=== PATIENT | male | born 1960 | race Caucasian/White ===

== ENCOUNTER 2022-07-09 09:34 | Outpatient (CLI) | payer BC, SELFPAY ==
--- NOTE | ~2022-07-09 | US_ITS ---
US renal BI 07/09/2022 10:10 Procedure: Realtime transabdominal ultrasound of the kidneys and bladder. Indication: Benign prostatic hypertrophy Comparison: No prior studies for comparison. Findings: Renal echotexture is normal bilaterally without hydronephrosis, contour deforming mass or r enal calculus. The right kidney measures 10.7 cm and left kidney measures 9.8 cm. Bladder within nor mal limits. Prostate gland is enlarged. Impression: 1: Unremarkable renal ultrasound. No stones, masses or hydronephrosis. Reviewed, dictated and finalized at location B. SCOPE TECHNICIAN Impression: 1: Unremarkable renal ultrasound. No stones, masses or hydronephrosis.
== END 2022-07-09 09:35 | disposition home or self-care (01) ==
PROVIDERS: PCP Internal Medicine; Visit Provider Nurse Practitioner
DX: N40.1 Benign prostatic hyperplasia with lower urinary tract symptoms (principal)
CPT/HCPCS: 76775

== ENCOUNTER 2024-12-20 13:09 | Emergency (ER) | payer MEDICARE, SELFPAY ==
[2024-12-20] VITALS (27 sets, daily range): BP systolic 98–139; BP diastolic 62–109; PULSE 60–90; RESP 13–28; TEMP 36.7; O2SAT 93–98
--- NOTE | ~2024-12-20 | XR_ITS ---
EXAMINATION: XR chest 2V Exam Date/Time: 12/20/2024 14:00 CDT HISTORY: weakness Comparison: None. RESULT: Lines, tubes, and devices: None. Lungs and pleura: Curvilinear left upper lobe opacification, corresponding to ovoid opacity in the l ateral view. Graded left lung opacity, increasing inferiorly. Moderate left costophrenic angle blunti ng. Cardiomediastinal silhouette: Partially obscured laterally, otherwise unremarkable. Other: No acute osseous or upper abdominal finding. IMPRESSION: Moderate, possibly loculated left pleural effusion with adjacent atelectasis. Infection not excluded Reviewed, dictated and finalized at location K. IMPRESSION: Moderate, possibly loculated left pleural effusion with adjacent atelectasis. I nfection not excluded
--- NOTE | ~2024-12-20 | CT_ITS ---
EXAMINATION: CT brain wo con DATE: 12/20/2024 15:58 INDICATION: hx alcoholism, recent falls . TECHNIQUE: Computed tomography (CT) of the head was performed without intravenous contrast. The mA wa s adjusted according to patient size. Iterative reconstruction technique was employed. The dose-lengt h product was 756.67 mGy-cm. COMPARISON: None. FINDINGS: No acute intracranial hemorrhage or extra-axial fluid collection. No hydrocephalus, mass, or herniation. No acute ischemic infarct. Unremarkable dural venous sinus attenuation. No acute osseous abnormality. Mucosal thickening and dependent secretions in the right sphenoid sinus, the remaining aerated spaces are clear. Mild atrophy and chronic white matter change. Atherosclerotic intracranial calcification. IMPRESSION: No acute intracranial process. Reviewed, dictated and finalized at location K.
--- NOTE | ~2024-12-20 | CT_ITS ---
EXAMINATION: CT cervical spine wo con DATE: 12/20/2024 15:59 INDICATION: hx alcoholism, recent falls, neck pain TECHNIQUE: Computed tomography (CT) of the cervical spine was performed without intravenous contrast. Automated exposure control and iterative reconstruction technique were employed. The dose-length pro duct was 277.78 mGy-cm. COMPARISON: None. FINDINGS: Vertebral Body Alignment: Intact. Craniocervical and atlantoaxial alignment: Moderate degenerative change. Alignment intact. Osseous structures/fracture: No evidence of a lytic or blastic process in the visualized spine. No e vidence of acute fracture. Cervical soft tissues: The paraspinal soft tissues planes are maintained. Biapical pleural scarring. Large loculated left pleural fluid collection. Groundglass opacities in the left lung. Periodontal di sease. Degenerative changes: Multilevel degenerative disc disease and facet arthropathy. Severe left neural foraminal narrowing at C4-5 secondary to degenerative changes. No severe central canal narrowing. IMPRESSION: No acute fracture or traumatic malalignment in the cervical spine. Large loculated appearing left pleural fluid collection with adjacent atelectasis. Please refer to th e report on the concurrent CTPA chest abdomen and pelvis for further details. Reviewed, dictated and finalized at location K. IMPRESSION: No acute fracture or traumatic malalignment in the cervical spine. Large loculated appearing left pleural fluid collection with adjacent atelectas is. Please refer to the report on the concurrent CTPA chest abdomen and pelvis for further details.
--- NOTE | ~2024-12-20 | CT_ITS ---
EXAMINATION: CTA chest PE abdomen pel, CT thoracic lumbar wo con DATE: 12/20/2024 16:12 INDICATION: hx alcoholism, recent falls, shortness of breath TECHNIQUE: CT of the thoracic and lumbar spine was performed without contrast. Computed tomography an giography (CTA) of the chest was performed with 100 mL Omnipaque-350 intravenous contrast timed to ev aluate the pulmonary arteries, followed by portal venous phase imaging of the abdomen and pelvis. Cor onal maximum intensity projection 3D-reconstructions were created by the technologist. The dose-lengt h product (DLP) was 580.46 (accession [id number]), 692.80 (accession [id number]) mGy-cm. Auto mated exposure control and iterative reconstruction technique were employed. COMPARISON: None. FINDINGS: CHEST: Lung parenchyma and airways: Significant volume loss in the left lung, with groundglass opacity in th e upper lung. Nearly complete atelectasis of the left lower lobe. Airway debris in left lower lobe br onchi. Mild atelectasis in the dependent right lung base. Mild emphysematous change. Mild biapical pl eural thickening. Pleura: Large probably loculated left pleural effusion. Gas bubbles in the dependent and medial aspec t of the pleural fluid. Small right pleural effusion. Thoracic inlet, axillae and chest wall: No thyroid or soft tissue mass. Diffuse body wall edema. Thoracic aorta: No significant dilation. No dissection. Mild atherosclerotic calcification. Mediastinum: No mass or lymphadenopathy. Heart and pericardium: Cardiomegaly. Small volume pericardial effusion. Coronary artery calcifications: Mild. Extraspinal thoracic bones: No acute osseous finding. Pulmonary arteries: Study quality: Adequate. No pulmonary emboli detected. ABDOMEN/PELVIS: Liver: Normal. Biliary/Gallbladder: Gallbladder is normal. No bile duct dilation. Pancreas: No mass or duct dilation. Spleen: Normal. Adrenals:No mass. Kidneys: No suspicious mass, obstructing stone, or hydronephrosis. GI tract: Mild distal esophageal and gastric wall edema. Mild ascending colonic wall edema. No small or large bowel dilation. Appendix not confidently visualized. Mesentery/Peritoneum: No ascites, mass, or free air. Moderate diffuse mesenteric edema. Retroperitoneum: No mass. Atherosclerotic calcifications of intra-abdominal arterial vessels. Pelvis: Grijalva catheter and gas in the urinary bladder. Moderate bladder distention. Moderate bladder wall thickening. Large left-sided diverticulum. Enlarged prostate. Presacral edema. Soft Tissues: Moderate diffuse body wall edema. Extraspinal abdominopelvic bones: Asymmetric bilateral sacral fusion. No acute osseous finding. THORACIC SPINE: 12 rib-bearing thoracic vertebral bodies Vertebral body alignment intact. Moderate height loss at T12 . Multilevel mild degenerative disc disease. Acute/subacute appearing mild burst fracture at T12 with 3 mm retropulsion. No other fracture or traumatic malalignment detected. No severe central canal or neural foraminal narrowing. LUMBAR SPINE: 5 nonrib-bearing lumbar-type vertebral bodies. Pedicles intact. Normal vertebral body alignment. Mild wedge compression fracture at L4 involving the superior endplate into cortex. No definite posterior cortical involvement. No other fracture or traumatic malalignment detected in the lumbar spine. Multi level degenerative disc disease and facet arthropathy. No severe central canal or neural foraminal na rrowing. IMPRESSION: No CT evidence of acute pulmonary embolus. Large, possibly loculated left pleural effusion with intrapleural gas suggesting empyema. No pneumoth orax. Left upper lung groundglass opacities, likely representing atelectasis, infection not excluded. Near complete atelectasis of the left lower lobe. Left lower lobe airway debris suggesting a compone nt of aspiration. Small right pleural effusion. Cardiomegaly with small pericardial effusion. Mild esophagitis/gastritis. Moderate cystitis. Distended urinary bladder despite the presence of a Grijalva catheter, correlate with tube function. Moderate diffuse mesenteric edema. Body wall edema. Acute/subacute appearing moderate burst fracture at T12, with 3 mm retropulsion. Acute/subacute appearing mild anterior wedge compression fracture at L4. Reviewed, dictated and finalized at location K. IMPRESSION: No CT evidence of acute pulmonary embolus. Large, possibly loculated left pleural effusion with intrapleural gas suggestin g empyema. No pneumothorax. Left upper lung groundglass opacities, likely repre senting atelectasis, infection not excluded. Near complete atelectasis of the l eft lower lobe. Left lower lobe airway debris suggesting a component of aspirat ion. Small right pleural effusion. Cardiomegaly with small pericardial effusion. Mild esophagitis/gastritis. Moderate cystitis. Distended urinary bladder despite the presence of a Grijalva ca theter, correlate with tube function. Moderate diffuse mesenteric edema. Body wall edema. Acute/subacute appearing moderate burst fracture at T12, with 3 mm retropulsion . Acute/subacute appearing mild anterior wedge compression fracture at L4.
--- OUTSIDE RECORDS SUMMARY | 2024-12-20 13:11 | XMS_ITS | Continuity of Care Document ---
Author Organization [facility] Address [id number] [place] [address] [place] [address] Phone Care Team Providers Care Dairy Manager Name Role Phone Merritt Varma DO Unavailable Unavailable Advance Directives Directive Yes / No Effective Date File Name No Information Encounters Encounter Description Practice Location Reason(s) For Visit Diagnoses Date Provider Providers Copied on Encounter [facility], [address], [place], [place], [id number], [place] tel:[phone] [facility] No Information Kojo Lomeli. [address] [facility], [place], [address], [place]. tel:[phone] Family History Family Member Type Diagnosis Age At Onset No Information Payers Payer name Insurance type Covered green party ID Authoriza tion(s) No Information Social History Type Description Quantity Date Captured Comments Sex Male Smoking Status No Information Chief Complaint And Reason For Visit No Information Reason For Referral Reason For Referral No Information History Of Present Illness Encounter Date Complaint History Of Prese nt Illness No Information Functional Status Date Functional Assessmen t No Information Instructions Date Instruction Additional Infor mation No Information Assessments Type Assessment Date No Information Patient Care Teams Name Effective Dates (start - stop) Status Members No Information
--- OUTSIDE RECORDS SUMMARY | 2024-12-20 13:11 | XMS_ITS | Continuity of Care Document ---
Author Organization [facility] Address [address] [place] [address] Phone Care Team Providers Care Singing Waiter Or Waitress Name Role Phone No Information Unavailable Unavailable Advance Directives Directive Yes / No Effective Date File Name No Information Encounters Encounter Description Practice Location Reason(s) For Visit Diagnoses Date Provider Providers Copied on Encounter Medical [facility], [address], [place], [place], [id number], [place] tel:[phone] No Information No Information Family History Family Member Type Diagnosis Age At Onset No Information Payers Payer name Insurance type Covered alliance party ID Authoriza tion(s) No Information Social [...]
--- OUTSIDE RECORDS SUMMARY | 2024-12-20 13:12 | XMS_ITS | Clinical Summary ---
Author Organization [facility] Address [address] [place] [address] Care Team Providers Care Long Haul Truck Driver Name Role Phone Higinio Leary MD Primary Care Provider [phone] Allergies Active Allergy Reactions Criticality Noted Date Comments Steroids Anxiety Low 06/22/2022 Medications finasteride (PROSCAR) 5 MG tablet Take 5 mg by mouth daily. 06/01/2022 Active tamsulosin (FLOMAX) 0.4 MG Cap Take 0.4 mg by mouth 2 (two) times daily. 06/07/2022 Active multi vitamin/minerals (THERA-M ENHANCED) tablet Take 1 tablet by mouth daily. Active Active Problems Problem Noted Date Diagnosed Date Body mass index (BMI) 20.0-20.9, adult Alcohol dependence with unsp ecified alcohol-induced disorder ([facility]) 06/22/2022 Nicotine dependence, cigarettes, uncomplicated 0 06/22/2022 Genital herpes simplex, unspecified site 023 Hx of colonic polyps 06/22/2022 Cellulitis of both ear canals 06/22/2022 Dermatitis of ear canal, bilateral 06/22/2022 Ear drainage, bilateral 06/22/2022 Tinnitus of both ears 06/22/2022 Benign prostatic hyperplasia with nocturia 06/22 Symptoms involving urinary system 11/02/2021 Seborrheic dermatitis of scalp 04/09/2019 Hyperlipidemia 03/27/2019 Paronychia of toe of right foot 11/26/2018 Immunizations Immunization Administration Dates Next Due Fluzone 6 Months+ Quad (0.5 mL Prefilled Syringe ) 06/22/2022 Family History Medical History Relation Comments None Daughter pbh Father Atrial fibrillation Mother Relation Status Comments Daughter Father Mother Social History Tobacco Use Types Packs/Day Years Used Date Smoking Tobacco: Every Day Cigarettes 2 50 Smokeless Tobacco: Never Tobacco Cessation:Ready to Q uit: No; Counseling Given: Yes Comments:The provider can provide you with more information about quitting Alcohol Use Standard Drinks/Week Comments Yes 20 (1 standard drink = 0.6 oz pu re alcohol) daily PHQ-2 Answer Date Recorded Patient Health Questionnaire-2 Score 0 06/22/2022 Sex and Gender Information Value Date Recorded Sex Assigned at Not on file Legal Sex Male 10:03 AM HONING MACHINE OPERATOR Gender Identity Not on file Sexual Orientation Not on file Last Filed Vital Signs Vital Sign Reading Time Taken Comments Blood Pressure 138/88 06/22/2022 12:23 PM HONING MACHINE OPERATOR Pulse 64 06/22/2022 11:20 AM HONING MACHINE OPERATOR Temperature 36.4 C (97.6 F) 06/22/2022 11:20 AM HONING MACHINE OPERATOR Respiratory Rate 16 06/22/2022 11:20 AM HONING MACHINE OPERATOR Oxygen Saturation 98% 06/22/2022 11:20 AM HONING MACHINE OPERATOR Inhaled Oxygen Concentration - - Weight 68.5 kg (151 lb) 06/22/2022 11:20 AM HONING MACHINE OPERATOR Height 182.9 cm (6') 06/22/2022 11:20 AM HONING MACHINE OPERATOR Body Mass Index 20.48 06/22/2022 11:20 AM HONING MACHINE OPERATOR Plan of Treatment Health Maintenance Due Date Last Done Comments Colorectal Cancer Screening Colonoscopy (10 Years) 1958 Hepatitis C 1976 Pneumococcal Vaccine: 50+ Ye ars (1 of 2 - PCV) 1977 Zoster Vaccines (1 of 2) 2008 COVID-19 Vaccine (2 - 2023-2 5 season) 2024 08/27/2020 DTaP, Tdap and Td Vaccines ( 2 - Td or Tdap) 06/20/2031 06/20/2021 RSV Immunization or 60+ Years (1 - 1-dose 75+ series) 2033 Meningococcal B Vaccine Aged Out No l onger eligible based on patient's age to complete this topic Meningococcal Vaccine Aged Out No paulina shad eligible based on patient's age to complete this topic RSV Immunizations Under 20 Months Aged Out No longer eligible based on patient's age to complete this topic Insurance Care Teams Long Haul Truck Driver Relationship Specialty Start Date End Date Higinio Leary MD PCP - General INTERNAL MEDICINE 07/10/22
--- NOTE | 2024-12-20 13:24 | ECG_ITS ---
Test Date: 2024-12-20 13:30:53 Measurements Intervals [place] Rate: 86 P: 70 AR: 160 QRS: 3 QRSD: 116 T: 43 QT: 356 QTc: 427 Interpretive Statements SINUS RHYTHM WITH FREQUENT VENTRICULAR PREMATURE COMPLEXES WITH OCCASIONAL SUPRAVENTRICULAR PREMATURE COMPLEXES POSSIBLE LEFT ATRIAL ENLARGEMENT INCOMPLETE RIGHT BUNDLE BRANCH BLOCK NONSPECIFIC ST & T-WAVE ABNORMALITY- DIFFUSE LEADS BASELINE ARTIFACT- I, II, AVR, AVL, AVF, V1-V3 ABNORMAL ECG No previous ECG available for comparison Electronically Signed On 12-20-2024 16:22:31 CDT by Dio Pinzon D.O.
--- NOTE | 2024-12-20 13:54 | PC.NURSE ---
Pt catheter changed
[2024-12-20 14:08] LABS: Hematocrit 35.6 % (42.0-52.0); Hemoglobin 12.1 g/dL (14.0-18.0); Immature Granulocyte Percent A 0.6 % (0-0.5); Lymphocytes Absolute Auto 2.09 K/mm3 (0.9-3.2); Mean Corpuscular HGB Conc 34.0 g/dl (32-36); Mean Corpuscular Hemoglobin 32.2 pg (26-34); Mean Corpuscular Volume 94.7 fl (80-100); Nucleated Red Blood Cells Absolute Auto 0.000 K/mm3 (0.0-0.012); Nucleated Red Blood Cells Perc 0.0 % (0.0-0.2); Platelet Count Result 413 k/mm3 (150-375); Red Blood Count 3.76 M/mm3 (4.6-6.20); White Blood Count 10.8 K/mm3 (4.5-10.0)
[2024-12-20 14:19] LABS: Alanine Aminotransferase 13 U/L (6-50); Albumin Level 2.5 g/dL (3.5-5.1); Alkaline Phosphatase 111 U/L (38-126); Aspartate Amino Transferase 40 U/L (17-59); Bilirubin,Total 0.4 mg/dL (0.2-1.3); Blood Urea Nitrogen 8 mg/dL (9-20); Calcium 7.4 mg/dL (8.4-10.2); Carbon Dioxide > 40 mmol/L (22-30); Chloride 79 mmol/L (98-107); Estimated CRCL calculation 105 ml/min; Estimated Glomerular Filt Rate > 60; Glucose 123 mg/dL (65-110); Potassium < 2.0 mmol/L (3.4-5.0); Sodium 132 mmol/L (137-145); Total Protein 6.3 g/dL (6.3-8.2)
--- OUTSIDE RECORDS SUMMARY | 2024-12-20 14:20 | XMS_ITS | Clinical Summary ---
Author Organization [facility] Address [address] [place] [address] Care Team Providers Care Print Shop Assistant Name Role Phone Higinio Leary MD Primary Care Provider [phone] Allergies Active Allergy Reactions Criticality Noted Date [...] Alcohol dependence with unsp ecified alcohol-induced disorder ([facility]) 06/22/2022 Nicotine dependence, cigarettes, uncomplicated 0 06/22/2022 [...] on file Legal Sex Male 10:03 AM ODD PIECE CHECKER Gender Identity Not on file Sexual Orientation Not on file Last Filed Vital Signs Vital Sign Reading Time Taken Comments Blood Pressure 138/88 06/22/2022 12:23 PM ODD PIECE CHECKER Pulse 64 06/22/2022 11:20 AM ODD PIECE CHECKER Temperature 36.4 C (97.6 F) 06/22/2022 11:20 AM ODD PIECE CHECKER Respiratory Rate 16 06/22/2022 11:20 AM ODD PIECE CHECKER Oxygen Saturation 98% 06/22/2022 11:20 AM ODD PIECE CHECKER Inhaled Oxygen Concentration - - Weight 68.5 kg (151 lb) 06/22/2022 11:20 AM ODD PIECE CHECKER Height 182.9 cm (6') 06/22/2022 11:20 AM ODD PIECE CHECKER Body Mass Index 20.48 06/22/2022 11:20 AM ODD PIECE CHECKER Plan of Treatment Health Maintenance Due Date [...] to complete this topic Insurance Care Teams Print Shop Assistant Relationship Specialty Start Date End Date Higinio Leary MD PCP - General INTERNAL MEDICINE 07/10/22
--- OUTSIDE RECORDS SUMMARY | 2024-12-20 14:20 | XMS_ITS | Continuity of Care Document ---
Author Organization [facility] Address [address] [place] [address] Phone Care Team Providers Care Skin Carver Name Role Phone No Information Unavailable Unavailable Advance Directives Directive Yes / No Effective Date File Name No Information Encounters Encounter Description Practice Location Reason(s) For Visit Diagnoses Date Provider Providers Copied on Encounter Medical [facility], [address], [place], [place], [id number], [place] tel:[phone] No Information No Information Family History Family [...]
--- OUTSIDE RECORDS SUMMARY | 2024-12-20 14:20 | XMS_ITS | Continuity of Care Document ---
Author Organization [facility] Address [address] [place] [address] [place] [address] Phone Care Team Providers Care [place] Utility Worker Name Role Phone Merritt Varma DO Unavailable Unavailable Advance Directives Directive Yes / No Effective Date File Name No Information Encounters Encounter Description Practice Location Reason(s) For Visit Diagnoses Date Provider Providers Copied on Encounter [facility], [address], [place], [place], [id number], [place] tel:[phone] [facility] No Information Kojo Lomeli. [address] [facility], [place], [address], [place]. tel:[phone] Family History Family Member Type Diagnosis Age [...]
--- NOTE | 2024-12-20 14:44 | ED_ITS ---
HPI - Weakness General Chief complaint: Weakness <Dimple Weaver APRN - Last Filed: 12/21/24 01:23> Stated complaint: FTT <Dimple Weaver APRN - Last Filed: 12/21/24 01:23> Time Seen by Provider: 12/20/24 13:52 <Dimple Weaver APRN - Last Filed: 12/21/24 01:23> History of Present Illness HPI Narrative: Patient is a 64-year-old male who presents to the ER with multiple medical complaints. He reports he retired from [employer] in August and has lost a significant amount of weight since then. Patient reports he fell 2 times on November 13, 2024 because he was drunk. He reports he went to [place] 3 times was discharged home. Patient endorses significant back pain since that time. He also endorses intermittent chest pain, shortness of breath, and tingling all over his head and back. Patient denies any medical history besides alcoholism and urinary retention. He reports 1 of the times he went to [place] [facility] they placed a urinary catheter due to urinary retention and he was supposed to follow-up with a urologist. Patient denies any recent fevers, one- sided weakness/numbness/tingling, or lower extremity edema. <Dimple Weaver APRN - Last Filed: 12/21/24 01:23> Related Data Allergies/Adverse reactions: Allergies Allergy/AdvReac Type Severity Reaction Status Date / Time No Known Allergies Allergy Verified 12/20/24 13:55 <Dimple Weaver APRN - Last Filed: 12/21/24 01:23> Review of Systems 2 Review of Systems: All systems reviewed & are unremarkable except as noted in HPI and below <Dimple Weaver APRN - Last Filed: 12/21/24 01:23> Exam 2 Narrative: GENERAL: Ill appearing, cachexia, non-toxic, in no acute distress. HEAD: Normocephalic, atraumatic. NECK: Supple. No adenopathy, no masses. RESPIRATORY: Airway patent, respirations nonlabored. Clear to auscultation bilaterally, no rales, rhonchi, wheezing. CARDIOVASCULAR: Regular rate and rhythm without murmurs, rubs, or gallops. Peripheral pulses 2+ and equal bilaterally. ABDOMINAL: Soft, nontender, nondistended, no hepatosplenomegaly. Normoactive BS. MUSCULOSKELETAL: Moves all extremities. Strength/ROM intact without gross deformities. + pain with palpation to thoracic spine, - pain with palpation to cervical spine SKIN: Warm, dry, pallor. No rashes. NEURO: A&O X3. Speech clear. Cranial nerves II-XII intact. No ataxic movements. PSYCHIATRIC: Appropriate mood and affect. Normal interaction. <Dimple Weaver APRN - Last Filed: 12/21/24 01:23> Course HR DIRECTOR/PA Physician Supervision For this patient encounter, I reviewed the HR DIRECTOR or PA documentation, treatment plan, and medical decision making; and I had [id number] time with this patient. <Brijesh Haider MD - Last Filed: 12/25/24 13:59> Vital Signs Vital signs: Vital Signs Temperature 98.1 F 12/20/24 13:26 Pulse Rate 88 12/20/24 13:26 Respiratory Rate 20 12/20/24 13:26 Blood Pressure 104/64 12/20/24 13:26 Pulse Oximetry 96 12/20/24 13:26 Oxygen Delivery Room Air 12/20/24 13:26 Temperature 98.1 F 12/20/24 13:26 Pulse Rate 66 12/20/24 21:31 Respiratory Rate 18 12/20/24 21:31 Blood Pressure 130/78 12/20/24 21:31 Pulse Oximetry 98 12/20/24 21:31 Oxygen Delivery Room Air 12/20/24 13:26 <Dimple Weaver APRN - Last Filed: 12/21/24 01:23> Vital Signs Temperature 98.1 F 12/20/24 13:26 Pulse Rate 88 12/20/24 13:26 Respiratory Rate 20 12/20/24 13:26 Blood Pressure 104/64 12/20/24 13:26 Pulse Oximetry 96 12/20/24 13:26 Oxygen Delivery Room Air 12/20/24 13:26 Temperature 98.1 F 12/20/24 13:26 Pulse Rate 66 12/20/24 21:31 Respiratory Rate 18 12/20/24 21:31 Blood Pressure 130/78 12/20/24 21:31 Pulse Oximetry 98 12/20/24 21:31 Oxygen Delivery Room Air 12/20/24 13:26 <Brijesh Haider MD - Last Filed: 12/25/24 13:59> MDM - Weakness MDM Narrative Medical decision making narrative: Patient is a 64-year-old male who presents to the ER with multiple medical complaints. He reports he retired from [employer] in August and has lost a significant amount of weight since then. Patient reports he fell 2 times on November 13, 2024 because he was drunk. He reports he went to [place] [facility] 3 times was discharged home. Patient endorses significant back pain since that time. He also endorses intermittent chest pain, shortness of breath, and tingling all over his head and back. Patient denies any medical history besides alcoholism and urinary retention. He reports 1 of the times he went to [place] [facility] they placed a urinary catheter due to urinary retention and he was supposed to follow-up with a urologist. Patient denies any recent fevers, one- sided weakness/numbness/tingling, or lower extremity edema. NIH Stroke Scale/Score (NIHSS) from [email or web address] on 12/20/2024 All calculations should be rechecked by clinician prior to use RESULT SUMMARY: 0 points NIH Stroke Scale INPUTS: 1A: Level of consciousness ?> 0 = Alert; keenly responsive 1B: Ask month and age ?> 0 = Both questions right 1C: 'Blink eyes' & 'squeeze hands' ?> 0 = Performs both tasks 2: Horizontal extraocular movements ?> 0 = Normal 3: Visual aparicio ?> 0 = No visual loss 4: Facial palsy ?> 0 = Normal symmetry 5A: Left arm motor drift ?> 0 = No drift for 10 seconds 5B: Right arm motor drift ?> 0 = No drift for 10 seconds 6A: Left leg motor drift ?> 0 = No drift for 5 seconds 6B: Right leg motor drift ?> 0 = No drift for 5 seconds 7: Limb Ataxia ?> 0 = No ataxia 8: Sensation ?> 0 = Normal; no sensory loss 9: Language/aphasia ?> 0 = Normal; no aphasia 10: Dysarthria ?> 0 = Normal 11: Extinction/inattention ?> 0 = No abnormality Labs Ordered: CBC, CMP, PTT, INR, d.dimer, CRP, UDS, UA, CK, blood cultures, ethanol level, TSH Imaging Ordered: CT head, CT cervical spine, CT thoracic lumbar spine, CT chest abdomen pelvis Medications Ordered: 2 L normal saline IV bolus, azithromycin IV, ceftriaxone IV, thiamine, folic acid, calcium gluconate, potassium chloride p.o., potassium chloride IV Results: Patient's CBC indicates white blood cell count of 10.8, RBC of 3.76, hemoglobin of 12.1, hematocrit of 35.6%, platelets of 413. Patient's coags indicated a PT of 15.9, INR 1.3, APTT of 32.7 seconds. His D-dimer was 2.81. Patient's chemistry indicates a sodium of 133, potassium of 1.5, chloride of 79, carbon dioxide of greater than 40, BUN of 8, creatinine of 0.52, and calcium of 7.4. His alk-phos was 132. Patient's initial troponin was elevated to 0.035 but his next troponin was within normal limits at 0.026. His C-reactive protein was 16.4. Patient's albumin was 2.6. His TSH was within normal limits, vitamin B12 was 786, and folate was 15. Patient's urinalysis indicates urinary tract infection. His UDS was negative for any illicit drugs. Patient's ethyl alcohol level was below 10. Patient's CT scans indicate No CT evidence of acute pulmonary embolus. Large, possibly loculated left pleural effusion with intrapleural gas suggesting empyema. No pneumothorax. Left upper lung groundglass opacities, likely representing atelectasis, infection not excluded. Near complete atelectasis of the left lower lobe. Left lower lobe airway debris suggesting a component of aspiration. Small right pleural effusion. Cardiomegaly with small pericardial effusion. Mild esophagitis/gastritis. Moderate cystitis. Distended urinary bladder despite the presence of a Grijalva catheter, correlate with tube function. Moderate diffuse mesenteric edema. Body wall edema. Acute/subacute appearing moderate burst fracture at T12, with 3 mm retropulsion. Acute/subacute appearing mild anterior wedge compression fracture at L4. Diagnosis: Loculated pleural effusion, T12 burst fracture, hypokalemia, urinary tract infection, hypocalcemia Consults: 1800- Spoke with neurosurgery, Dr. Garcia, who advised pt have a Vitamin B12 level drawn d/t his intermittent numbness/tingling in his arms and legs. She also reports pt will need a back brace and she will coordinate that after she consults on pt tomorrow morning. 1830- Spoke with hospitalist, Teri Sepulveda NP, who reports pt will need to go to an outside hospital d/t his loculated pleural effusion. 2100-spoke with oil sales and service rep, Dr. Marcial, at [facility] on [address], who was in agreement with plan for admission. He reports pt should receive Flagyl IV to treat his empyema. Dr. Marcial also requests pt continue to have his potassium replaced prior to and during his transport to their facility. CRITICAL CARE ADDENDUM: Indication: Hypokalemia, hypocalcemia, fluid replacement Time type: intermittent I provided a total of 55 minutes of critical care excluding separately billable procedures. This includes time w/ EMS, initial bedside evaluation, reviewing old records, review of testing done while under my care, discussion w/ the family, nurses, consultant in ergonomics and safety and guiding the patient?s care while in the emergency department. Approximate time distribution: 15 minutes ? Initial evaluation, d/w involved parties, attempting to gather old records. 10 minutes ? Documenting medical record 10 minutes ? Review of results (EKGs, labs, imaging) 10 minutes ? Serial repeat bedside evaluation 10 minutes ? Discussing case with multiple providers Excludes separately billable procedures. 2430- Pt transferred out of the ER on his stretcher. Vital signs remain stable. Pt was receiving potassium IV as he left the ER. He continues to be A & O x 4. <Dimple Weaver, WELLNESS COORDINATOR - Last Filed: 12/21/24 01:23> Differential Diagnosis Differential diagnosis: Likely hypoglycemia, hypothyroidism, rhabdomyolysis, sepsis and dehydration <Dimple Weaver APRN - Last Filed: 12/21/24 01:23> Lab Data Attestation: I reviewed the patient's lab results. <Dimple Weaver APRN - Last Filed: 12/21/24 01:23> Result diagrams: 12/20/24 13:53 12/20/24 19:52 <Dimple Weaver WELLNESS COORDINATOR - Last Filed: 12/21/24 01:23> Labs: Lab Results 12/20/24 12/20/24 12/20/24 Range/Units 13:53 14:52 14:52 WBC 10.8 H (4.5-10.0) K/mm3 RBC 3.76 L (4.6-6.20) M/mm3 Hgb 12.1 L (14.0-18.0) g/dL Hct 35.6 L (42.0-52.0) % MCV 94.7 (80-100) fl MCH 32.2 (26-34) pg MCHC 34.0 (32-36) g/dl RDW 13.7 (11.5-14.5) % Plt Count 413 H (150-375) k/mm3 MPV 11.5 H (7.4-10.4) fl Immature Gran % (Auto) 0.6 H (0-0.5) % Neut % (Auto) 73.4 H (45.5-73.1) % Lymph % (Auto) 19.4 (18.3-44.2) % Mayes % (Auto) 6.1 (2.6-8.5) % Eos % (Auto) 0.2 (0-4.4) % Baso % (Auto) 0.3 (0.2-1.2) % Lymph # (Auto) 2.09 (0.9-3.2) K/mm3 Mayes # (Auto) 0.7 H (0.1-0.6) K/mm3 Eos # (Auto) 0.0 (0-0.3) K/mm3 Baso # (Auto) 0.0 (0.0-0.1) K/mm3 Abs Immat Gran (auto) 0.07 H (0.00-0.031) K/mm3 Absolute Neuts (auto) 7.9 H (1.3-6.7) K/mm3 Absolute Nucleated RBC 0.000 (0.0-0.012) K/mm3 Nucleated RBC % 0.0 (0.0-0.2) % PT 15.9 H (11.1-14.7) Seconds INR 1.3 APTT 32.7 (22.3-36.8) Seconds D-Dimer 2.81 H Cancelled (<0.48) ug/mL Sodium 132 L 133 L (137-145) mmol/L Potassium < 2.0 L* < 2.0 L* (3.4-5.0) mmol/L Chloride 79 L 79 L (98-107) mmol/L Carbon Dioxide > 40 H > 40 H (22-30) mmol/L Anion Gap (4-12) mmol/L BUN 8 L 8 L (9-20) mg/dL Creatinine 0.45 L 0.52 L (0.7-1.3) mg/dL Estim Creat Clear Calc 105 93 ml/min Estimated GFR > 60 > 60 (59 - ) Glucose 123 H 110 (65-110) mg/dL Lactic Acid (0.7-2.0) mmol/L Calcium 7.4 L 7.6 L (8.4-10.2) mg/dL Total Bilirubin 0.4 0.3 (0.2-1.3) mg/dL AST 40 38 (17-59) U/L ALT 13 12 (6-50) U/L Alkaline Phosphatase 111 132 H (38-126) U/L Ammonia (9-30) umol/L Total Creatine Kinase 113 (55-170) U/L Troponin I 0.035 H* (0.000-0.034) ng/mL C-Reactive Protein 16.4 H (<1.0) mg/dL Total Protein 6.3 6.4 (6.3-8.2) g/dL Albumin 2.5 L 2.6 L (3.5-5.1) g/dL Vitamin B12 (239-931) pg/mL Folate (2.76->20) ng/mL TSH (Reflex) (0.465-4.68) uIU/mL Urine Color (Yellow) Urine Appearance (Clear) Urine pH (5.0-9.0) Ur Specific [place] (1.001-1.035) Urine Protein (Negative) mg/dL Urine Glucose (UA) (Negative) mg/dL Urine Ketones (Negative) mg/dL Ur Blood (Man) (Negative) Urine Nitrate (Negative) Urine Bilirubin (Negative) Urine Urobilinogen (<2.0) mg/dL Add Ur Microanalysis Leukocyte Esterase Rfl (Negative) MARY/UL Urine RBC (0-2) /hpf Urine WBC (0-3) /hpf Ur Squamous Epith Cells (Few) /hpf Urine Bacteria /hpf Urine Casts Urine Opiates Screen (Negative) Urine Methadone Screen (Negative) Ur Barbiturates Screen (Negative) Ur Phencyclidine Scrn (Negative) Ur Amphetamine Screen (Negative) U Benzodiazepines Scrn (Negative) Urine Cocaine Screen (Negative) U Cannabinoids Screen (Negative) Ethyl Alcohol (<10) mg/dL 12/20/24 12/20/24 12/20/24 Range/Units 14:53 14:53 15:20 WBC (4.5-10.0) K/mm3 RBC (4.6-6.20) M/mm3 Hgb (14.0-18.0) g/dL Hct (42.0-52.0) % MCV (80-100) fl MCH (26-34) pg MCHC (32-36) g/dl RDW (11.5-14.5) % Plt Count (150-375) k/mm3 MPV (7.4-10.4) fl Immature Gran % (Auto) (0-0.5) % Neut % (Auto) (45.5-73.1) % Lymph % (Auto) (18.3-44.2) % Mayes % (Auto) (2.6-8.5) % Eos % (Auto) (0-4.4) % Baso % (Auto) (0.2-1.2) % Lymph # (Auto) (0.9-3.2) K/mm3 Mayes # (Auto) (0.1-0.6) K/mm3 Eos # (Auto) (0-0.3) K/mm3 Baso # (Auto) (0.0-0.1) K/mm3 Abs Immat Gran (auto) (0.00-0.031) K/mm3 Absolute Neuts (auto) (1.3-6.7) K/mm3 Absolute Nucleated RBC (0.0-0.012) K/mm3 Nucleated RBC % (0.0-0.2) % PT (11.1-14.7) Seconds INR APTT (22.3-36.8) Seconds D-Dimer (<0.48) ug/mL Sodium (137-145) mmol/L Potassium (3.4-5.0) mmol/L Chloride (98-107) mmol/L Carbon Dioxide (22-30) mmol/L Anion Gap (4-12) mmol/L BUN (9-20) mg/dL Creatinine (0.7-1.3) mg/dL Estim Creat Clear Calc ml/min Estimated GFR (59 - ) Glucose (65-110) mg/dL Lactic Acid 1.6 (0.7-2.0) mmol/L Calcium (8.4-10.2) mg/dL Total Bilirubin (0.2-1.3) mg/dL AST (17-59) U/L ALT (6-50) U/L Alkaline Phosphatase (38-126) U/L Ammonia < 9 L (9-30) umol/L Total Creatine Kinase (55-170) U/L Troponin I Cancelled (0.000-0.034) ng/mL C-Reactive Protein Cancelled (<1.0) mg/dL Total Protein (6.3-8.2) g/dL Albumin (3.5-5.1) g/dL Vitamin B12 (239-931) pg/mL Folate (2.76->20) ng/mL TSH (Reflex) 1.830 (0.465-4.68) uIU/mL Urine Color Dark yellow (Yellow) Urine Appearance Turbid H (Clear) Urine pH 7.5 (5.0-9.0) Ur Specific [place] 1.023 (1.001-1.035) Urine Protein 2+ H (Negative) mg/dL Urine Glucose (UA) Negative (Negative) mg/dL Urine Ketones Trace H (Negative) mg/dL Ur Blood (Man) 2+ H (Negative) Urine Nitrate Positive H (Negative) Urine Bilirubin 2+ H (Negative) Urine Urobilinogen 2.0 H (<2.0) mg/dL Add Ur Microanalysis Reviewed Leukocyte Esterase Rfl 3+ H (Negative) MARY/UL Urine RBC 21-50 H (0-2) /hpf Urine WBC >100 H (0-3) /hpf Ur Squamous Epith Cells None seen (Few) /hpf Urine Bacteria 2+ H /hpf Urine Casts 11-20 Urine Opiates Screen Negative (Negative) Urine Methadone Screen Negative (Negative) Ur Barbiturates Screen Negative (Negative) Ur Phencyclidine Scrn Negative (Negative) Ur Amphetamine Screen Negative (Negative) U Benzodiazepines Scrn Negative (Negative) Urine Cocaine Screen Negative (Negative) U Cannabinoids Screen Negative (Negative) Ethyl Alcohol < 10 Cancelled (<10) mg/dL 12/20/24 Range/Units 19:52 WBC (4.5-10.0) K/mm3 RBC (4.6-6.20) M/mm3 Hgb (14.0-18.0) g/dL Hct (42.0-52.0) % MCV (80-100) fl MCH (26-34) pg MCHC (32-36) g/dl RDW (11.5-14.5) % Plt Count (150-375) k/mm3 MPV (7.4-10.4) fl Immature Gran % (Auto) (0-0.5) % Neut % (Auto) (45.5-73.1) % Lymph % (Auto) (18.3-44.2) % Mayes % (Auto) (2.6-8.5) % Eos % (Auto) (0-4.4) % Baso % (Auto) (0.2-1.2) % Lymph # (Auto) (0.9-3.2) K/mm3 Mayes # (Auto) (0.1-0.6) K/mm3 Eos # (Auto) (0-0.3) K/mm3 Baso # (Auto) (0.0-0.1) K/mm3 Abs Immat Gran (auto) (0.00-0.031) K/mm3 Absolute Neuts (auto) (1.3-6.7) K/mm3 Absolute Nucleated RBC (0.0-0.012) K/mm3 Nucleated RBC % (0.0-0.2) % PT (11.1-14.7) Seconds INR APTT (22.3-36.8) Seconds D-Dimer (<0.48) ug/mL Sodium 135 L (137-145) mmol/L Potassium 2.0 L* (3.4-5.0) mmol/L Chloride 88 L (98-107) mmol/L Carbon Dioxide > 40 H (22-30) mmol/L Anion Gap (4-12) mmol/L BUN 7 L (9-20) mg/dL Creatinine 0.47 L (0.7-1.3) mg/dL Estim Creat Clear Calc 101 ml/min Estimated GFR > 60 (59 - ) Glucose 98 (65-110) mg/dL Lactic Acid (0.7-2.0) mmol/L Calcium 7.4 L (8.4-10.2) mg/dL Total Bilirubin (0.2-1.3) mg/dL AST (17-59) U/L ALT (6-50) U/L Alkaline Phosphatase (38-126) U/L Ammonia (9-30) umol/L Total Creatine Kinase (55-170) U/L Troponin I 0.026 D (0.000-0.034) ng/mL C-Reactive Protein (<1.0) mg/dL Total Protein (6.3-8.2) g/dL Albumin (3.5-5.1) g/dL Vitamin B12 786.0 (239-931) pg/mL Folate 15.0 (2.76->20) ng/mL TSH (Reflex) (0.465-4.68) uIU/mL Urine Color (Yellow) Urine Appearance (Clear) Urine pH (5.0-9.0) Ur Specific [place] (1.001-1.035) Urine Protein (Negative) mg/dL Urine Glucose (UA) (Negative) mg/dL Urine Ketones (Negative) mg/dL Ur Blood (Man) (Negative) Urine Nitrate (Negative) Urine Bilirubin (Negative) Urine Urobilinogen (<2.0) mg/dL Add Ur Microanalysis Leukocyte Esterase Rfl (Negative) MARY/UL Urine RBC (0-2) /hpf Urine WBC (0-3) /hpf Ur Squamous Epith Cells (Few) /hpf Urine Bacteria /hpf Urine Casts Urine Opiates Screen (Negative) Urine Methadone Screen (Negative) Ur Barbiturates Screen (Negative) Ur Phencyclidine Scrn (Negative) Ur Amphetamine Screen (Negative) U Benzodiazepines Scrn (Negative) Urine Cocaine Screen (Negative) U Cannabinoids Screen (Negative) Ethyl Alcohol (<10) mg/dL <Dimple Weaver, WELLNESS COORDINATOR - Last Filed: 12/21/24 01:23> Lab Results 12/20/24 12/20/24 12/20/24 Range/Units 13:53 14:52 14:52 WBC 10.8 H (4.5-10.0) K/mm3 RBC 3.76 L (4.6-6.20) M/mm3 Hgb 12.1 L (14.0-18.0) g/dL Hct 35.6 L (42.0-52.0) % MCV 94.7 (80-100) fl MCH 32.2 (26-34) pg MCHC 34.0 (32-36) g/dl RDW 13.7 (11.5-14.5) % Plt Count 413 H (150-375) k/mm3 MPV 11.5 H (7.4-10.4) fl Immature Gran % (Auto) 0.6 H (0-0.5) % Neut % (Auto) 73.4 H (45.5-73.1) % Lymph % (Auto) 19.4 (18.3-44.2) % Mayes % (Auto) 6.1 (2.6-8.5) % Eos % (Auto) 0.2 (0-4.4) % Baso % (Auto) 0.3 (0.2-1.2) % Lymph # (Auto) 2.09 (0.9-3.2) K/mm3 [place]es # (Auto) 0.7 H (0.1-0.6) K/mm3 Eos # (Auto) 0.0 (0-0.3) K/mm3 Baso # (Auto) 0.0 (0.0-0.1) K/mm3 Abs Immat Gran (auto) 0.07 H (0.00-0.031) K/mm3 Absolute Neuts (auto) 7.9 H (1.3-6.7) K/mm3 Absolute Nucleated RBC 0.000 (0.0-0.012) K/mm3 Nucleated RBC % 0.0 (0.0-0.2) % PT 15.9 H (11.1-14.7) Seconds INR 1.3 APTT 32.7 (22.3-36.8) Seconds D-Dimer 2.81 H Cancelled (<0.48) ug/mL Sodium 132 L 133 L (137-145) mmol/L Potassium < 2.0 L* < 2.0 L* (3.4-5.0) mmol/L Chloride 79 L 79 L (98-107) mmol/L Carbon Dioxide > 40 H > 40 H (22-30) mmol/L Anion Gap (4-12) mmol/L BUN 8 L 8 L (9-20) mg/dL Creatinine 0.45 L 0.52 L (0.7-1.3) mg/dL Estim Creat Clear Calc 105 93 ml/min Estimated GFR > 60 > 60 (59 - ) Glucose 123 H 110 (65-110) mg/dL Lactic Acid (0.7-2.0) mmol/L Calcium 7.4 L 7.6 L (8.4-10.2) mg/dL Total Bilirubin 0.4 0.3 (0.2-1.3) mg/dL AST 40 38 (17-59) U/L ALT 13 12 (6-50) U/L Alkaline Phosphatase 111 132 H (38-126) U/L Ammonia (9-30) umol/L Total Creatine Kinase 113 (55-170) U/L Troponin I 0.035 H* (0.000-0.034) ng/mL C-Reactive Protein 16.4 H (<1.0) mg/dL Total Protein 6.3 6.4 (6.3-8.2) g/dL Albumin 2.5 L 2.6 L (3.5-5.1) g/dL Vitamin B12 (239-931) pg/mL Folate (2.76->20) ng/mL TSH (Reflex) (0.465-4.68) uIU/mL Urine Color (Yellow) Urine Appearance (Clear) Urine pH (5.0-9.0) Ur Specific [place] (1.001-1.035) Urine Protein (Negative) mg/dL Urine Glucose (UA) (Negative) mg/dL Urine Ketones (Negative) mg/dL Ur Blood (Man) (Negative) Urine Nitrate (Negative) Urine Bilirubin (Negative) Urine Urobilinogen (<2.0) mg/dL Add Ur Microanalysis Leukocyte Esterase Rfl (Negative) MARY/UL Urine RBC (0-2) /hpf Urine WBC (0-3) /hpf Ur Squamous Epith Cells (Few) /hpf Urine Bacteria /hpf Urine Casts Urine Opiates Screen (Negative) Urine Methadone Screen (Negative) Ur Barbiturates Screen (Negative) Ur Phencyclidine Scrn (Negative) Ur Amphetamine Screen (Negative) U Benzodiazepines Scrn (Negative) Urine Cocaine Screen (Negative) U Cannabinoids Screen (Negative) Ethyl Alcohol (<10) mg/dL 12/20/24 12/20/24 12/20/24 Range/Units 14:53 14:53 15:20 WBC (4.5-10.0) K/mm3 RBC (4.6-6.20) M/mm3 Hgb (14.0-18.0) g/dL Hct (42.0-52.0) % MCV (80-100) fl MCH (26-34) pg MCHC (32-36) g/dl RDW (11.5-14.5) % Plt Count (150-375) k/mm3 MPV (7.4-10.4) fl Immature Gran % (Auto) (0-0.5) % Neut % (Auto) (45.5-73.1) % Lymph % (Auto) (18.3-44.2) % Mayes % (Auto) (2.6-8.5) % Eos % (Auto) (0-4.4) % Baso % (Auto) (0.2-1.2) % Lymph # (Auto) (0.9-3.2) K/mm3 [place] # (Auto) (0.1-0.6) K/mm3 Eos # (Auto) (0-0.3) K/mm3 Baso # (Auto) (0.0-0.1) K/mm3 Abs Immat Gran (auto) (0.00-0.031) K/mm3 Absolute Neuts (auto) (1.3-6.7) K/mm3 Absolute Nucleated RBC (0.0-0.012) K/mm3 Nucleated RBC % (0.0-0.2) % PT (11.1-14.7) Seconds INR APTT (22.3-36.8) Seconds D-Dimer (<0.48) ug/mL Sodium (137-145) mmol/L Potassium (3.4-5.0) mmol/L Chloride (98-107) mmol/L Carbon Dioxide (22-30) mmol/L Anion Gap (4-12) mmol/L BUN (9-20) mg/dL Creatinine (0.7-1.3) mg/dL Estim Creat Clear Calc ml/min Estimated GFR (59 - ) Glucose (65-110) mg/dL Lactic Acid 1.6 (0.7-2.0) mmol/L Calcium (8.4-10.2) mg/dL Total Bilirubin (0.2-1.3) mg/dL AST (17-59) U/L ALT (6-50) U/L Alkaline Phosphatase (38-126) U/L Ammonia < 9 L (9-30) umol/L Total Creatine Kinase (55-170) U/L Troponin I Cancelled (0.000-0.034) ng/mL C-Reactive Protein Cancelled (<1.0) mg/dL Total Protein (6.3-8.2) g/dL Albumin (3.5-5.1) g/dL Vitamin B12 (239-931) pg/mL Folate (2.76->20) ng/mL TSH (Reflex) 1.830 (0.465-4.68) uIU/mL Urine Color Dark yellow (Yellow) Urine Appearance Turbid H (Clear) Urine pH 7.5 (5.0-9.0) Ur Specific [place] 1.023 (1.001-1.035) Urine Protein 2+ H (Negative) mg/dL Urine Glucose (UA) Negative (Negative) mg/dL Urine Ketones Trace H (Negative) mg/dL Ur Blood (Man) 2+ H (Negative) Urine Nitrate Positive H (Negative) Urine Bilirubin 2+ H (Negative) Urine Urobilinogen 2.0 H (<2.0) mg/dL Add Ur Microanalysis Reviewed Leukocyte Esterase Rfl 3+ H (Negative) MARY/UL Urine RBC 21-50 H (0-2) /hpf Urine WBC >100 H (0-3) /hpf Ur Squamous Epith Cells None seen (Few) /hpf Urine Bacteria 2+ H /hpf Urine Casts 11-20 Urine Opiates Screen Negative (Negative) Urine Methadone Screen Negative (Negative) Ur Barbiturates Screen Negative (Negative) Ur Phencyclidine Scrn Negative (Negative) Ur Amphetamine Screen Negative (Negative) U Benzodiazepines Scrn Negative (Negative) Urine Cocaine Screen Negative (Negative) U Cannabinoids Screen Negative (Negative) Ethyl Alcohol < 10 Cancelled (<10) mg/dL 12/20/24 Range/Units 19:52 WBC (4.5-10.0) K/mm3 RBC (4.6-6.20) M/mm3 Hgb (14.0-18.0) g/dL Hct (42.0-52.0) % MCV (80-100) fl MCH (26-34) pg MCHC (32-36) g/dl RDW (11.5-14.5) % Plt Count (150-375) k/mm3 MPV (7.4-10.4) fl Immature Gran % (Auto) (0-0.5) % Neut % (Auto) (45.5-73.1) % Lymph % (Auto) (18.3-44.2) % [place] % (Auto) (2.6-8.5) % Eos % (Auto) (0-4.4) % Baso % (Auto) (0.2-1.2) % Lymph # (Auto) (0.9-3.2) K/mm3 [place]es # (Auto) (0.1-0.6) K/mm3 Eos # (Auto) (0-0.3) K/mm3 Baso # (Auto) (0.0-0.1) K/mm3 Abs Immat Gran (auto) (0.00-0.031) K/mm3 Absolute Neuts (auto) (1.3-6.7) K/mm3 Absolute Nucleated RBC (0.0-0.012) K/mm3 Nucleated RBC % (0.0-0.2) % PT (11.1-14.7) Seconds INR APTT (22.3-36.8) Seconds D-Dimer (<0.48) ug/mL Sodium 135 L (137-145) mmol/L Potassium 2.0 L* (3.4-5.0) mmol/L Chloride 88 L (98-107) mmol/L Carbon Dioxide > 40 H (22-30) mmol/L Anion Gap (4-12) mmol/L BUN 7 L (9-20) mg/dL Creatinine 0.47 L (0.7-1.3) mg/dL Estim Creat Clear Calc 101 ml/min Estimated GFR > 60 (59 - ) Glucose 98 (65-110) mg/dL Lactic Acid (0.7-2.0) mmol/L Calcium 7.4 L (8.4-10.2) mg/dL Total Bilirubin (0.2-1.3) mg/dL AST (17-59) U/L ALT (6-50) U/L Alkaline Phosphatase (38-126) U/L Ammonia (9-30) umol/L Total Creatine Kinase (55-170) U/L Troponin I 0.026 D (0.000-0.034) ng/mL C-Reactive Protein (<1.0) mg/dL Total Protein (6.3-8.2) g/dL Albumin (3.5-5.1) g/dL Vitamin B12 786.0 (239-931) pg/mL Folate 15.0 (2.76->20) ng/mL TSH (Reflex) (0.465-4.68) uIU/mL Urine Color (Yellow) Urine Appearance (Clear) Urine pH (5.0-9.0) Ur Specific [place] (1.001-1.035) Urine Protein (Negative) mg/dL Urine Glucose (UA) (Negative) mg/dL Urine Ketones (Negative) mg/dL Ur Blood (Man) (Negative) Urine Nitrate (Negative) Urine Bilirubin (Negative) Urine Urobilinogen (<2.0) mg/dL Add Ur Microanalysis Leukocyte Esterase Rfl (Negative) MARY/UL Urine RBC (0-2) /hpf Urine WBC (0-3) /hpf Ur Squamous Epith Cells (Few) /hpf Urine Bacteria /hpf Urine Casts Urine Opiates Screen (Negative) Urine Methadone Screen (Negative) Ur Barbiturates Screen (Negative) Ur Phencyclidine Scrn (Negative) Ur Amphetamine Screen (Negative) U Benzodiazepines Scrn (Negative) Urine Cocaine Screen (Negative) U Cannabinoids Screen (Negative) Ethyl Alcohol (<10) mg/dL <Brijesh Haider MD - Last Filed: 12/25/24 13:59> Imaging Data Attestation: I personally reviewed and interpreted this imaging study as follows: < Dimple Weaver, ROBE - Last Filed: 12/21/24 01:23> Radiologist's impression: Impressions Chest X-Ray 12/20/24 14:16 IMPRESSION: Moderate, possibly loculated left pleural effusion with adjacent atelectasis. Infection not excluded Head CT 12/20/24 16:08 IMPRESSION: No acute intracranial process. Cervical Spine CT 12/20/24 16:25 IMPRESSION: No acute fracture or traumatic malalignment in the cervical spine. Large loculated appearing left pleural fluid collection with adjacent atelectasis. Please refer to the report on the concurrent CTPA chest abdomen and pelvis for further details. Chest/Abdomen/Pelvis CTA 12/20/24 16:30 IMPRESSION: No CT evidence of acute pulmonary embolus. Large, possibly loculated left pleural effusion with intrapleural gas suggesting empyema. No pneumothorax. Left upper lung groundglass opacities, likely representing atelectasis, infection not excluded. Near complete atelectasis of the left lower lobe. Left lower lobe airway debris suggesting a component of aspiration. Small right pleural effusion. Cardiomegaly with small pericardial effusion. Mild esophagitis/gastritis. Moderate cystitis. Distended urinary bladder despite the presence of a Grijalva catheter, correlate with tube function. Moderate diffuse mesenteric edema. Body wall edema. Acute/subacute appearing moderate burst fracture at T12, with 3 mm retropulsion. Acute/subacute appearing mild anterior wedge compression fracture at L4. Thoracic/Lumbar Spine CT 12/20/24 16:30 IMPRESSION: No CT evidence of acute pulmonary embolus. Large, possibly loculated left pleural effusion with intrapleural gas suggesting empyema. No pneumothorax. Left upper lung groundglass opacities, likely representing atelectasis, infection not excluded. Near complete atelectasis of the left lower lobe. Left lower lobe airway debris suggesting a component of aspiration. Small right pleural effusion. Cardiomegaly with small pericardial effusion. Mild esophagitis/gastritis. Moderate cystitis. Distended urinary bladder despite the presence of a Grijalva catheter, correlate with tube function. Moderate diffuse mesenteric edema. Body wall edema. Acute/subacute appearing moderate burst fracture at T12, with 3 mm retropulsion. Acute/subacute appearing mild anterior wedge compression fracture at L4. <Dimple Weaver APRN - Last Filed: 12/21/24 01:23> Discharge Plan Discharge Clinical Impression: Hypokalemia, Hypocalcemia, Loculated pleural effusion, Acute dehydration, Burst fracture of thoracic vertebra, Urinary tract infection, History of alcohol abuse <Dimple Weaver APRN - Last Filed: 12/21/24 01:23> Patient Disposition: Acute Care Hospital <Dimple Weaver APRN - Last Filed: 12/21/24 01:23> Condition: Serious <Dimple Weaver APRN - Last Filed: 12/21/24 01:23> Patient Language: Khmer <Dimple Weaver APRN - Last Filed: 12/21/24 01:23> Follow-up/Referrals: Keraay,Higinio Cruz MD [Primary Care Provider] - <Dimple Weaver APRN - Last Filed: 12/21/24 01:23>
--- NOTE | 2024-12-20 15:03 | ECG_ITS ---
Test Date: 2024-12-20 15:07:33 Measurements Intervals [place] Rate: 65 P: 50 [place]: 158 QRS: -1 QRSD: 121 T: 34 QT: 494 QTc: 516 Interpretive Statements SINUS RHYTHM WITH OCCASIONAL VENTRICULAR PREMATURE COMPLEXES INCOMPLETE RIGHT BUNDLE BRANCH BLOCK BORDERLINE ST-T WAVE ABNORMALITY- DIFFUSE LEADS BASELINE ARTIFACT- I, II, AVR, AVL BORDERLINE ECG Compared to ECG 12/20/2024 13:30:53 NO SIGNIFICANT CHANGE Electronically Signed On 12-20-2024 16:11:05 CDT by Dio Pinzon D.O.
[2024-12-20] MEDS: SODIUM CHLORIDE 0.9% IV 1,000 ML 999 ML IV CONT ×2 (15:12→19:12)
[2024-12-20] MEDS: SODIUM CHLORIDE 0.9% IV 700 ML 999 ML IV CONT (15:13)
[2024-12-20 15:14] LABS: Ammonia < 9 umol/L (9-30)
[2024-12-20 15:17] LABS: INR 1.3; Partial Thromboplastin Time 32.7 Seconds (22.3-36.8); Prothrombin Time 15.9 Seconds (11.1-14.7)
[2024-12-20 15:19] LABS: Cannabinoid Screen Urine Negative (Negative)
[2024-12-20] MEDS: cefTRIAXone 1 GM in SODIUM CHLORIDE 0.9% IV 50 ML 100 ML IVPB (15:20)
[2024-12-20 15:30] LABS: Alanine Aminotransferase 12 U/L (6-50); Albumin Level 2.6 g/dL (3.5-5.1); Alkaline Phosphatase 132 U/L (38-126); Aspartate Amino Transferase 38 U/L (17-59); Bilirubin,Total 0.3 mg/dL (0.2-1.3); Blood Urea Nitrogen 8 mg/dL (9-20); Calcium 7.6 mg/dL (8.4-10.2); Carbon Dioxide > 40 mmol/L (22-30); Chloride 79 mmol/L (98-107); Creatine Kinase 113 U/L (55-170); Estimated CRCL calculation 93 ml/min; Estimated Glomerular Filt Rate > 60; Glucose 110 mg/dL (65-110); Potassium < 2.0 mmol/L (3.4-5.0); Sodium 133 mmol/L (137-145); Total Protein 6.4 g/dL (6.3-8.2)
[2024-12-20 15:32] LABS: Troponin I 0.035 ng/mL (0.000-0.034)
[2024-12-20] MEDS: POTASSIUM CHLORIDE 20 MEQ PACKET (FOR LIQUID) 80 MEQ PO (15:32)
[2024-12-20 15:38] LABS: CRP 16.4 mg/dL (<1.0)
[2024-12-20] MEDS: KCL 20 MEQ/SW 100 ML 100 ML 50 MEQ IVPB ×2 (15:42→19:13)
[2024-12-20 15:43] LABS: Thyroid Stimulating Hormone Reflex 1.830 uIU/mL (0.465-4.68)
[2024-12-20 15:55] LABS: Add Urine Microscopic? YES; Appearance Urine Turbid (Clear); Glucose Urine UA Negative (Negative); Leukocyte Esterase Ur 3+ LEU/UL (Negative); Need Manual Microscopic Reviewed; Nitrate Urine Positive (Negative); Specific Grav Ur 1.023 (1.001-1.035)
[2024-12-20] MEDS: CALCIUM GLUCONATE 1,000 MG/10 ML VIAL 1000 MG IV PUSH (16:55)
[2024-12-20] MEDS: FOLIC ACID 1 MG/0.2 ML INJ IV PUSH (19:15)
[2024-12-20] MEDS: THIAMINE HCL 200 MG/2 ML VIAL 100 MG IV PUSH (19:16)
[2024-12-20] MEDS: AZITHROMYCIN IV 500 MG in SODIUM CHLORIDE 0.9% IV 250 ML IVPB (19:18)
[2024-12-20 20:18] LABS: Blood Urea Nitrogen 7 mg/dL (9-20); Calcium 7.4 mg/dL (8.4-10.2); Carbon Dioxide > 40 mmol/L (22-30); Chloride 88 mmol/L (98-107); Estimated CRCL calculation 101 ml/min; Estimated Glomerular Filt Rate > 60; Glucose 98 mg/dL (65-110); Potassium 2.0 mmol/L (3.4-5.0); Sodium 135 mmol/L (137-145)
[2024-12-20 20:22] LABS: Troponin I 0.026 ng/mL (0.000-0.034)
[2024-12-20 21:15] LABS: Vitamin B12 786.0 pg/mL (239-931)
[2024-12-20] MEDS: metroNIDAZOLE 500 MG/ISO 100ML 500 MG/100 ML BAG 100 MG IVPB (21:36)
--- NOTE | 2024-12-20 22:24 | PC.NURSE ---
RN spoke with Yehuda trotter [facility] on [employer] [address] to give report on pt at 2140. Pt ETA from [facility] is 2330.
[2024-12-21] MEDS: KCL 20 MEQ/SW 100 ML 100 ML 50 MEQ IVPB (00:13)
== END 2024-12-21 00:18 | disposition short-term general hospital (02) ==
PROVIDERS: Emergency Medicine; Emergency Provider Registered Nurse; PCP Internal Medicine
DX: N30.90 Cystitis, unspecified without hematuria (principal); S22.081A Stable burst fracture of T11-T12 vertebra, initial encounter for closed fracture; E86.0 Dehydration; J90 Pleural effusion, not elsewhere classified; E83.51 Hypocalcemia; E87.6 Hypokalemia; F10.20 Alcohol dependence, uncomplicated; Y90.0 Blood alcohol level of less than 20 mg/100 ml; I51.7 Cardiomegaly; K20.90 Esophagitis, unspecified without bleeding; K29.70 Gastritis, unspecified, without bleeding; S32.040A Wedge compression fracture of fourth lumbar vertebra, initial encounter for closed fracture; I49.3 Ventricular premature depolarization; I49.1 Atrial premature depolarization; R94.31 Abnormal electrocardiogram [ECG] [EKG]; I45.10 Unspecified right bundle-branch block; W19.XXXA Unspecified fall, initial encounter
CPT/HCPCS: 36415; 70450; 71046; 71275; 72125; 72128; 72131; 74177; 80048; 80053; 80307; 81001; 82077; 82140; 82550; 82607; 82746; 83605; 84443; 84484; 85025; 85380; 85610; 85730; 86140; 93005; 96361; 96365; 96366; 96367; 96368; 96375; 99285; A9270; J0456; J0612; J0696; J1836; J3411; J3480; J7030; J7050; Q9967

== ENCOUNTER 2025-04-26 18:15 | Emergency (ER) | payer MEDICARE, SELFPAY ==
--- NOTE | 2025-04-26 19:10 | PC.NURSE ---
no answer for triage at 1909
--- NOTE | 2025-04-26 19:32 | PC.NURSE ---
no answer for triage at 193
--- NOTE | 2025-04-26 20:00 | PC.NURSE ---
NO ANSWER AT 2000
--- OUTSIDE RECORDS SUMMARY | 2025-04-26 20:14 | XMS_ITS | Clinical Summary ---
Author Organization [facility] Address [address] [place] [address] Phone Care Team Providers [employer] Repairer Name Role Phone Higinio Leary MD Primary Care Provider [phone] Allergies No known active allergies Medications tamsulosin (Flomax) 0.4 mg capsule Take 0.4 mg by mouth daily. Active finasteride (PROSCAR) 5 mg tablet Take 5 mg by mouth daily. 06/01/2022 Active cholecalciferol , vitamin D3, 1,000 unit Take 6 Tablets (6,000 Units) by mouth daily. 01/02/2025 Active multivitamin tx with iron and folic acid tablet 18-400 mg-mcg Tablet Take 1 Tablet by mouth daily. 01/02/2025 Active saccharomyces boulardii (FLORASTOR) 250 mg Capsule Take 1 Capsule (250 mg) by mouth 2 times daily. 01/01/2025 Active oxyCODONE (ROXICODONE) 5 mg tabletIndicatio ns:Closed stable burst fracture of fourth lumbar vertebra, initial encounter (CMS/[facility]) Take 1 Tablet (5 mg) by mouth every 6 hours as needed for Pain. Max Daily Amount: 20 mg 20 Tablet 01/01/2025 Active THIAMINE HCL, VITAMIN B1, ORAL Take by mouth. Active baclofen (LIORESAL) 10 mg tablet Take 1 Tablet by mouth every 6 hours. 01/29/2025 Active gabapentin (NEURONTIN) 300 mg capsule Take 300 mg by mouth daily at bedtime. 01/20/2025 Active gabapentin (NEURONTIN) 100 mg capsule Take 1 Capsule by mouth 3 times daily. 01/12/2025 Active Active Problems Problem Noted Date Diagnosed Date MSSA bacteremia 12/24/2024 Pneumonia of both lungs due to methicillin susceptible Staphylococcus aureus (MSSA) 12/24/2024 Empyema of left pleural space 12/24/2024 Closed fracture of fourth lumbar vertebra 2024 Hypokalemia 12/21/2024 Pleural effusion on left 12/21/2024 Alcohol use disorder 12/21/2024 Protein-calorie malnutrition, severe 12/21/2024 Metabolic alkalosis 12/21/2024 Abnormal weight loss 12/21/2024 Acute respiratory failure with hypoxia Burst fracture of T12 vertebra 12/21/2024 Encounters Date Type Department Care Team Description 04/06/2025 External Device Data ST[facility] ABSTRACTION Provider, Abstract 03/26/2025 Abstract [facility] [address] [place] [address] Cindy Mendiola PA 03/17/2025 8:30 AM CDT Office Visit [facility] [address] [place] [address] Cindy Mendiola PA Burst fracture of T12 vertebra (CMS/HCC) (Primary Dx); Closed wedge compression fracture of L4 vertebra with delayed healing, subsequent encounter 2025 7:52 AM CDT - 2025 11:59 PM CDT Hospital Encounter [facility] [address] [place] [address] Cindy Mendiola PA Discharge Disposition: Home or Self Care 2025 7:51 AM CDT - 2025 11:59 PM CDT Hospital Encounter [facility] [address] [place] [address] Owen Laws MD Discharge Disposition: Home or Self Care 2025 7:51 AM CDT - 2025 11:59 PM CDT Hospital Encounter [facility] [address] [place] [address] Owen Laws MD Discharge Disposition: Home or Self Care 2025 7:50 AM CDT - 2025 11:59 PM CDT Hospital Encounter [facility] [place] [address] [place] [address] Owen Laws MD Discharge Disposition: Home or Self Care 03/02/2025 External Device Data STL ABSTRACTION Provider, Abstract 03/02/2025 External Device Data STL ABSTRACTION Provider, Abstract 02/08/2025 11:29 AM CDT - 02/08/2025 11:59 PM CDT Hospital Encounter [facility] [address] [place] [address] Marty Mascorro MD Discharge Disposition: Home or Self Care 02/08/2025 10:30 AM CDT Office Visit [facility] [address] [place] [place] [address] Marty Mascorro MD Pleural effusion (Primary Dx); Empyema of left pleural space (CMS/HCC) 02/04/2025 2:30 PM CDT Office Visit [facility] [place] [address] [place] [address] Cindy Mendiola PA Burst fracture of T12 vertebra (CMS/HCC) (Primary Dx); Closed wedge compression fracture of L4 vertebra with delayed healing, subsequent encounter 02/04/2025 12:13 PM CDT - 02/04/2025 11:59 PM CDT Hospital Encounter [facility] [address] [place] [address] Owen Laws MD Discharge Disposition: Home or Self Care 02/04/2025 12:13 PM CDT - 02/04/2025 11:59 PM CDT Hospital Encounter [facility] [address] [place] [address] Owen Laws MD Discharge Disposition: Home or Self Care 02/04/2025 12:13 PM CDT - 02/04/2025 11:59 PM CDT Hospital Encounter [facility] [address] [place] [address] Owen Laws MD Discharge Disposition: Home or Self Care 02/04/2025 12:07 PM CDT - 02/04/2025 11:59 PM CDT Hospital Encounter [facility] [address] [place] [address] Hunter Verma PA Discharge Disposition: Home or Self Care 02/04/2025 12:05 PM CDT - 02/04/2025 11:59 PM CDT Hospital Encounter [facility] [address] [place] [address] Hunter Verma PA Discharge Disposition: Home or Self Care 02/04/2025 Abstract [facility] [place] [address] [place] [address] Cindy Mendiola PA 02/03/2025 Abstract [facility] [address] [place] [address] Marty Mascorro MD 02/02/2025 External Device Data STL ABSTRACTION Provider, Abstract 02/02/2025 External Device Data STL ABSTRACTION Provider, Abstract 01/28/2025 Abstract [facility] [address] [place] [address] Marty Mascorro MD 01/26/2025 External Device Data STL ABSTRACTION Provider, Abstract 01/26/2025 External Device Data STL ABSTRACTION Provider, Abstract 01/26/2025 External Device Data STL ABSTRACTION Provider, Abstract from Last 3 Months Immunizations Immunization Administration Dates Next Due (ADACEL/BOOSTRIX)(10 YR UP) TDAP VACCINE, 0.5ML, IM 06/20/2021 INFLUENZA VACCINE QUADRIVALE NT 6 MOS UP CELL DERIVED PF IM 03/03/2020 INFLUENZA VACCINE QUADRIVALENT 6 MOS UP PF IM ,03/26/2019 Social History Tobacco Use Types Packs/Day Years Used Date Smoking Tobacco: Every Day Cigarettes Tobacco Cessation:Ready to Q uit: Not Asked; Counseling Given: Not Answered Feeling Safe Answer Date Recorded Are you in a relationship wi th someone who hurts you emotionally and/or physically? No 12/21/2024 Food Insecurity Answer Date Recorded Patient needs follow up regardin 12/21/2024 Transportation Needs Answer Date Record ed Patient needs follow up regardin 12/21/2024 Utility Needs Answer Date Recorded Patient needs follow up regardin 12/21/2024 Sex and Gender Information Value Date Recorded Sex Assigned at Not on file Legal Sex Male 6:34 PM CDT Gender Identity Not on file Sexual Orientation Not on file Last Filed Vital Signs Vital Sign Reading Time Taken Comments Blood Pressure 131/75 03/17/2025 8:26 AM CDT Pulse 65 03/17/2025 8:26 AM CDT Temperature 36.4 C (97.5 F) 02/08/2025 10:36 AM CDT Respiratory Rate 20 03/17/2025 8:26 AM CDT Oxygen Saturation 92% 03/17/2025 8:26 AM CDT Inhaled Oxygen Concentration - - Weight 57.6 kg (127 lb) 03/17/2025 8:26 AM CDT Height 180.3 cm (5' 11) 03/17/2025 8:26 AM CDT Body Mass Index 17.71 03/17/2025 8:26 AM CDT Plan of Treatment Health Maintenance Due Date Last Done Comments PNEUMOCOCCAL VACCINE 50+ YEA RS (1 of 2 - PCV) 1977 COLORECTAL SCREENING 2003 Colorectal Cancer Screening 2003 FIT-DNA Q 3 years 2003 FIT/FOBT Q 1 year 2003 Flex Sig/CT Colonography Q 5 years 2003 RSV VACCINE (60+ or ) (1 - Risk 50-74 years 1-dose series) 2008 ZOSTER VACCINE (1 of 2) 2008 Abdominal Aortic Aneurysm (A AA) Screening 2023 INFLUENZA VACCINE (#1) 2024 3, 03/03/2020, 03/26/2019 COVID-19 Vaccine (2 - 2024- season) 01/18/202502/2021 DTAP/TDAP/TD VACCINES (2 - T d or Tdap) 06/20/2031 06/20/2021 Procedures Procedure Name Priority Date/Time Associated Diagnosis Comments MRI LUMBAR WO CONTRAST Routine 2025 10:34 AM CDT Lumbar pain MRI THORACIC WO CONTRAST Routine 2025 9:45 AM CDT Thoracic radiculopathy MRI CERVICAL WO CONTRAST Routine 2025 9:33 AM CDT Cervical radiculopathy XR THORACOLUMBAR SPINE 2 VW Routine 2025 7:58 AM CDT Burst fracture of T12 vertebra (CMS/HCC) BASIC METABOLIC PANEL Routine 03/09/2025 11:15 AM CDT Pleural effusion Empyema of left pleural space (CMS/HCC) C-REACTIVE PROTEIN Routine 03/09/2025 11 :15 AM CDT Pleural effusion Empyema of left pleural space (CMS/HCC) XR CHEST PA AND LATERAL 2 VW Routine 02/08/2025 11:49 AM CDT Pleural effusion XR SHOULDER 2+ VW BILAT Routine 02/04/2025 12:57 PM CDT Limitation of activity due to disability XR KNEE 3 VW BILAT Routine 02/04/2025 12 :57 PM CDT Limitation of activity due to disability XR HIPS BILAT MIN 5 VIEWS Routine 02/04/2025 12:56 PM CDT Limitation of activity due to disability XR LUMBAR SPINE 2 OR 3 VW Routine 02/04/2025 12:55 PM CDT Burst fracture of T12 vertebra (CMS/HCC) Closed wedge compression fracture of L4 vertebra, initial encounter (CMS/HCC) XR THORACIC SPINE 2 VW Routine 02/04/2025 12:55 PM CDT Burst fracture of T12 vertebra ([facility]) Closed wedge compression fracture of L4 vertebra, initial encounter ([facility]) from Last 3 Months Results * MRI LUMBAR WO CONTRAST (2025 10:34 AM CDT) Anatomical Region Laterality Modality Spine Magnetic Resonan ce 2025 10:3 8 AM CDT Impressions 2025 11:21 AM CDT IMPRESSION: 1. L4 compression fracture with unchanged height loss. 2. Chronic L1 compression deformity. 3. Mild lumbar degenerative disc disease as described above. DICTATION LOCATION: Location [address] [place] [address] Narrative 2025 11:21 AM CDT EXAMINATION: MRI LUMBAR WO CONTRAST DATE: 2025 10:34 AM HISTORY: See Diagnosis; Lumbar pain TECHNIQUE: MRI of the lumbar spine was performed without contrast according to standard protocol. COMPARISON: 12/21/2024 FINDINGS: Please see the separate report from the concurrent MRI thoracic spine for findings in the lower thoracic spine. There is mild levoscoliosis. There is an unchanged chronic L1 compression deformity. There is a nonretropulsed L4 compression fracture with less than 25% height loss without significant interval change other than decreased marrow edema. There is Modic 1 and 2 endplate change at multiple levels. The conus medullaris terminates at the level of L1 and the distal spinal cord signal intensity is normal. There is mild disc height loss at multiple levels. Left lower lobe opacification is incompletely imaged. L1-L2: There is mild disc bulge. There is no spinal canal stenosis. There is no facet osteoarthritis. There is no neural foraminal stenosis. L2-L3: There is mild disc bulge. There is no spinal canal stenosis. There is no facet osteoarthritis. There is no neural foraminal stenosis. L3-L4: There is mild disc bulge. There is no spinal canal stenosis. There is no facet osteoarthritis. There is no neural foraminal stenosis. L4-L5: There is mild disc bulge. There is no spinal canal stenosis. There is no facet osteoarthritis. There is no neural foraminal stenosis. L5-S1: There is mild disc bulge. There is no spinal canal stenosis. There is no facet osteoarthritis. There is no neural foraminal stenosis. Procedure Note Thomas Sarabia MD - 2025 EXAMINATION: MRI LUMBAR WO CONTRAST DATE: 2025 10:34 AM HISTORY: See Diagnosis; Lumbar pain TECHNIQUE: MRI of the lumbar spine was performed without contrast according to standard protocol. COMPARISON: 12/21/2024 FINDINGS: Please see the separate report from the concurrent MRI thoracic spine for findings in the lower thoracic spine. There is mild levoscoliosis. There is an unchanged chronic L1 compression deformity. There is a nonretropulsed L4 compression fracture with less than 25% height loss without significant interval change other than decreased marrow edema. There is Modic 1 and 2 endplate change at multiple levels. The conus medullaris terminates at the level of L1 and the distal spinal cord signal intensity is normal. There is mild disc height loss at multiple levels. Left lower lobe opacification is incompletely imaged. L1-L2: There is mild disc bulge. There is no spinal canal stenosis. There is no facet osteoarthritis. There is no neural foraminal stenosis. L2-L3: There is mild disc bulge. There is no spinal canal stenosis. There is no facet osteoarthritis. There is no neural foraminal stenosis. L3-L4: There is mild disc bulge. There is no spinal canal stenosis. There is no facet osteoarthritis. There is no neural foraminal stenosis. L4-L5: There is mild disc bulge. There is no spinal canal stenosis. There is no facet osteoarthritis. There is no neural foraminal stenosis. L5-S1: There is mild disc bulge. There is no spinal canal stenosis. There is no facet osteoarthritis. There is no neural foraminal stenosis. IMPRESSION: 1. L4 compression fracture with unchanged height loss. 2. Chronic L1 compression deformity. 3. Mild lumbar degenerative disc disease as described above. DICTATION LOCATION: Location [address] [place] [address] us Owen Veto LUCAS MR ORDERABLES Final Result * MRI THORACIC WO CONTRAST (2025 9:45 AM CDT) Anatomical Region Laterality Modality Spine Magnetic Resonan ce 2025 10:0 6 AM CDT Impressions 2025 10:30 AM CDT IMPRESSION: 1. T12 compression fracture with unchanged height loss. 2. Mild scoliosis. DICTATION LOCATION: Location [address] [place] [address] Narrative 2025 10:30 AM CDT EXAMINATION: MRI THORACIC WO CONTRAST DATE: 2025 9:45 AM HISTORY: See Diagnosis; Thoracic radiculopathy TECHNIQUE: MRI of the thoracic spine was performed without contrast according to standard protocol. COMPARISON: 12/21/2024 FINDINGS: Degenerative changes in the cervical spine are incompletely imaged on the counting images. There is mild scoliosis. There is a T12 compression fracture with minimal retropulsion and 25% height loss without significant interval change other than decreased marrow edema. There is Modic 1 endplate changes at T11 inferior endplate. The spinal cord appears normal. There is mild degenerative disc disease. No spinal canal stenosis is seen. The facets appear normal. No neural foraminal stenosis is seen. Left lower lobe opacification is incompletely imaged. Procedure Note Thomas Sarabia MD - 2025 EXAMINATION: MRI THORACIC WO CONTRAST DATE: 2025 9:45 AM HISTORY: See Diagnosis; Thoracic radiculopathy TECHNIQUE: MRI of the thoracic spine was performed without contrast according to standard protocol. COMPARISON: 12/21/2024 FINDINGS: Degenerative changes in the cervical spine are incompletely imaged on the counting images. There is mild scoliosis. There is a T12 compression fracture with minimal retropulsion and 25% height loss without significant interval change other than decreased marrow edema. There is Modic 1 endplate changes at T11 inferior endplate. The spinal cord appears normal. There is mild degenerative disc disease. No spinal canal stenosis is seen. The facets appear normal. No neural foraminal stenosis is seen. Left lower lobe opacification is incompletely imaged. IMPRESSION: 1. T12 compression fracture with unchanged height loss. 2. Mild scoliosis. DICTATION LOCATION: Location [address] [place] [address] Owenniru Laws MD MR ORDERABLES Final Result * MRI CERVICAL WO CONTRAST (2025 9:33 AM CDT) Anatomical Region Laterality Modality Spine Magnetic Resonan ce 2025 10:0 4 AM CDT Impressions 2025 10:17 AM CDT IMPRESSION: 1. Active spondylosis associated with marrow edema is observed at the C3-4 disc level, C6-7 disc level, and left C3-4 facet joint. 2. Multilevel spondylosis, most notably with left C3-4, left C4-5, and left C6-7 foraminal stenosis. DICTATION LOCATION: Location [address] [place] [address] [facility] 2025 10:17 AM CDT EXAMINATION: MRI CERVICAL WO CONTRAST DATE: 2025 9:33 AM HISTORY: See Diagnosis,Cervical radiculopathy FINDINGS: Routine sagittal and axial images of the cervical spine are obtained without contrast and compared with the December 20, 2024 CT scan. Discogenic marrow edema is present at C3-4 and C6-7 without intervertebral disc fluid or paraspinal inflammation. Marrow edema is present in the left C3 and C4 articular pillars with an associated facet joint effusion and surrounding pericapsular inflammation. The cervicomedullary junction and cervical spinal cord are normal. Craniocervical junction: Normal. C1-2: Normal. C2-3: Moderate right facet osteoarthritis and normal intervertebral disc. C3-4: Normal disc space narrowing, mild disc bulging, bilateral uncovertebral spurring, advanced left facet osteoarthritis, left foraminal stenosis, and right foraminal narrowing. C4-5: Advanced left facet osteoarthritis and left foraminal stenosis without change. C5-6: Disc space narrowing, bilateral uncovertebral spurring, patent spinal canal, and patent neural foramina. C6-7: Disc space narrowing, posterior disc osteophyte complex formation, bilateral uncovertebral spurring, patent spinal canal, and left foraminal stenosis. C7-T1: No significant abnormality. Procedure Note Chirag Bonner MD - 2025 EXAMINATION: MRI CERVICAL WO CONTRAST DATE: 2025 9:33 AM HISTORY: See Diagnosis,Cervical radiculopathy FINDINGS: Routine sagittal and axial images of the cervical spine are obtained without contrast and compared with the December 20, 2024 CT scan. Discogenic marrow edema is present at C3-4 and C6-7 without intervertebral disc fluid or paraspinal inflammation. Marrow edema is present in the left C3 and C4 articular pillars with an associated facet joint effusion and surrounding pericapsular inflammation. The cervicomedullary junction and cervical spinal cord are normal. Craniocervical junction: Normal. C1-2: Normal. C2-3: Moderate right facet osteoarthritis and normal intervertebral disc. C3-4: Normal disc space narrowing, mild disc bulging, bilateral uncovertebral spurring, advanced left facet osteoarthritis, left foraminal stenosis, and right foraminal narrowing. C4-5: Advanced left facet osteoarthritis and left foraminal stenosis without change. C5-6: Disc space narrowing, bilateral uncovertebral spurring, patent spinal canal, and patent neural foramina. C6-7: Disc space narrowing, posterior disc osteophyte complex formation, bilateral uncovertebral spurring, patent spinal canal, and left foraminal stenosis. C7-T1: No significant abnormality. IMPRESSION: 1. Active spondylosis associated with marrow edema is observed at the C3-4 disc level, C6-7 disc level, and left C3-4 facet joint. 2. Multilevel spondylosis, most notably with left C3-4, left C4-5, and left C6-7 foraminal stenosis. DICTATION LOCATION: [address] [facility] MD MR ORDERABLES Final Result * XR THORACOLUMBAR SPINE 2 VW (2025 7:58 AM CDT) Anatomical Region Laterality Modality Spine Computed Radiogr aphy 2025 7:59 AM CDT Impressions 2025 8:35 AM CDT IMPRESSION: 1. Unchanged T12 and L4 compression fractures. DICTATION LOCATION: [address] Narrative 2025 8:35 AM CDT EXAMINATION: XR THORACOLUMBAR SPINE 2 VW DATE: 2025 7:58 AM HISTORY: See Diagnosis; Burst fracture of T12 vertebra (CMS/HCC) COMPARISON: 02/04/2025 FINDINGS: There is mild levoscoliosis. T12 and L4 compression fractures appear unchanged. There is mild degenerative disc disease. Procedure Note Thomas Sarabia MD - 2025 EXAMINATION: XR THORACOLUMBAR SPINE 2 VW DATE: 2025 7:58 AM HISTORY: See Diagnosis; Burst fracture of T12 vertebra (CMS/HCC) COMPARISON: 02/04/2025 FINDINGS: There is mild levoscoliosis. T12 and L4 compression fractures appear unchanged. There is mild degenerative disc disease. IMPRESSION: 1. Unchanged T12 and L4 compression fractures. DICTATION LOCATION: Location [address] [place] [address] us Cindy FREED DIAGNOSTIC IMAGING ORDERABLE S Final Result * C-REACTIVE PROTEIN (03/09/2025 11:15 AM CDT) CRP <5.0 <8.0 mg/L [facility] Comment: Test Performed at: [place] [address] [address] [id number] [facility] Vo Blood 03/09/2025 11:1 5 AM CDT 03/09/2025 11:15 AM CDT us Marty Mascorro MD CHEMISTRY ORDERABLES Final Resul t [facility] [phone] [facility] [place] [address] [address] [place] [address] [phone] * (ABNORMAL) BASIC METABOLIC PANEL (03/09/2025 11:15 AM CDT) GLUCOSE 83 65 - 99 mg/dL [facility] Comment: Fasting reference interval BUN 15 7 - 25 mg/dL [facility] CREATININE 0.68(L) 0.70 - 1.35 mg/dL [facility] GFR 103 > OR = 60 mL/min/1. 73m2 [facility] BUN/CREAT RATIO 22 6 - 22 (calc) [facility] SODIUM 135 135 - 146 mmol/L [facility] POTASSIUM 4.7 3.5 - 5.3 mmol/L [facility] CHLORIDE 99 98 - 110 mmol/L [facility] CO2 28 20 - 32 mmol/L [facility] CALCIUM 9.4 8.6 - 10.3 mg/dL [facility] Comment: Test Performed at: [place] [address] [address] [place] [address] [id number] [facility] Vo Blood 03/09/2025 11:1 5 AM CDT 03/09/2025 11:15 AM CDT us Marty Mascorro MD CHEMISTRY ORDERABLES Final Resul t [facility] [phone] [facility] [address] [place] [address] * XR CHEST PA AND LATERAL 2 VW (02/08/2025 11:49 AM CDT) Anatomical Region Laterality Modality Chest Computed Radiogr aphy 02/08/2025 11:4 9 AM CDT Impressions 02/08/2025 1:54 PM CDT IMPRESSION: 1. Left pleural effusion is significantly decreased with possible small residual component posteriorly on the lateral view versus pleural thickening/scarring. 2. Left basilar atelectasis/airspace disease has resolved. DICTATION LOCATION: Location [address] [place] [address] Narrative 02/08/2025 1:54 PM CDT EXAM: XR CHEST PA AND LATERAL 2 VW DATE: 02/08/2025 11:49 AM HISTORY: See Diagnosis, Pleural effusion COMPARISON: 12/27/2024 FINDINGS: Left pleural effusion is significantly decreased. Small residual left pleural effusion may be present posteriorly on the lateral view. Left basilar atelectasis/airspace disease has resolved. The right lung is clear. No pneumothorax or pleural effusion. Normal heart size. Aortic atherosclerosis. No acute osseous abnormality identified. Procedure Note Dell Hernandez MD - 02/08/2025 EXAM: XR CHEST PA AND LATERAL 2 VW DATE: 02/08/2025 11:49 AM HISTORY: See Diagnosis, Pleural effusion COMPARISON: 12/27/2024 FINDINGS: Left pleural effusion is significantly decreased. Small residual left pleural effusion may be present posteriorly on the lateral view. Left basilar atelectasis/airspace disease has resolved. The right lung is clear. No pneumothorax or pleural effusion. Normal heart size. Aortic atherosclerosis. No acute osseous abnormality identified. IMPRESSION: 1. Left pleural effusion is significantly decreased with possible small residual component posteriorly on the lateral view versus pleural thickening/scarring. 2. Left basilar atelectasis/airspace disease has resolved. DICTATION LOCATION: Location 1 - [facility] us Marty Mascorro MD DIAGNOSTIC IMAGING ORDERABLES Fi nal Result * XR SHOULDER 2+ VW BILAT (02/04/2025 12:57 PM CDT) Anatomical Region Laterality Modality Upper Extremity Computed Radiogr aphy 02/04/2025 12:5 7 PM CDT Impressions 02/04/2025 1:59 PM CDT IMPRESSION: Minimal osteoarthritis of the right shoulder. Normal left shoulder. No acute injury. DICTATION LOCATION: Location 4 Narrative 02/04/2025 1:59 PM CDT EXAM: BILATERAL SHOULDER DATE: 02/04/2025 12:57 PM HISTORY: See Diagnosis. Limitation of activity due to disability TECHNIQUE: Internal rotation, external rotation and axillary views of each shoulder. 6 views. FINDINGS: Right Shoulder: There is no acute fracture, bone erosion or focal neoplasm. There are mild osteoarthritic findings at the glenohumeral joint with small osteophytes. Left Shoulder: There is no acute fracture, bone erosion or focal neoplasm. The joint shows normal alignment and spacing without arthritic change. Procedure Note Edu Soriano MD - 02/04/2025 EXAM: BILATERAL SHOULDER DATE: 02/04/2025 12:57 PM HISTORY: See Diagnosis. Limitation of activity due to disability TECHNIQUE: Internal rotation, external rotation and axillary views of each shoulder. 6 views. FINDINGS: Right Shoulder: There is no acute fracture, bone erosion or focal neoplasm. There are mild osteoarthritic findings at the glenohumeral joint with small osteophytes. Left Shoulder: There is no acute fracture, bone erosion or focal neoplasm. The joint shows normal alignment and spacing without arthritic change. IMPRESSION: Minimal osteoarthritis of the right shoulder. Normal left shoulder. No acute injury. DICTATION LOCATION: Location 4 Owen Laws MD DIAGNOSTIC IMAGING ORDERABLES Final Result * XR KNEE 3 VW BILAT (02/04/2025 12:57 PM CDT) Anatomical Region Laterality Modality Lower Extremity Computed Radiogr aphy 02/04/2025 12:5 7 PM CDT Impressions 02/04/2025 1:51 PM CDT IMPRESSION: 1. No evidence of acute osseous injury or joint effusion. DICTATION LOCATION: Location [address] [place] [address] Narrative 02/04/2025 1:51 PM CDT XR KNEE 3 VW BILAT DATE: 02/04/2025 12:57 PM HISTORY: Limited activity due to disability TECHNIQUE: Threeimages of the right knee and threeimages of the left knee COMPARISON: None FINDINGS: Right knee: Normal mineralization of the osseous structures. No acute fracture, subluxation or dislocation identified. The soft tissues are unremarkable. No joint effusion identified. No significant degenerative changes. Left Knee: Normal mineralization of the osseous structures. No acute fracture, subluxation or dislocation identified. The soft tissues are unremarkable. No joint effusion identified. No significant degenerative changes. Procedure Note Jaspal Villela MD - 02/04/2025 XR KNEE 3 VW BILAT DATE: 02/04/2025 12:57 PM HISTORY: Limited activity due to disability TECHNIQUE: Threeimages of the right knee and threeimages of the left knee COMPARISON: None FINDINGS: Right knee: Normal mineralization of the osseous structures. No acute fracture, subluxation or dislocation identified. The soft tissues are unremarkable. No joint effusion identified. No significant degenerative changes. Left Knee: Normal mineralization of the osseous structures. No acute fracture, subluxation or dislocation identified. The soft tissues are unremarkable. No joint effusion identified. No significant degenerative changes. IMPRESSION: 1. No evidence of acute osseous injury or joint effusion. DICTATION LOCATION: Location [address] [place] [address] Owenkaylie Laws MD DIAGNOSTIC IMAGING ORDERABLES Final Result * XR HIPS BILAT MIN 5 VIEWS (02/04/2025 12:56 PM CDT) Anatomical Region Laterality Modality Lower Extremity Computed Radiogr aphy 02/04/2025 12:5 7 PM CDT Impressions 02/04/2025 1:29 PM CDT IMPRESSION: No distinct hip abnormality identified. DICTATION LOCATION: Location [address] [place] [address] Narrative 02/04/2025 1:29 PM CDT EXAMINATION: BILATERAL HIPS, DATE: 02/04/2025 12:56 PM HISTORY: Other - Please see comments. Limitation of activity due to disability COMPARISON: None FINDINGS: Examination of the pelvis and hips fails to demonstrate evidence of fracture, dislocation, or subluxation. Joint spaces are preserved. Sacroiliac joints are aligned and intact. Catheter tip superimposes the bladder. INCIDENTAL FINDINGS: None. Procedure Note Jarvis De Los Santos MD - 02/04/2025 EXAMINATION: BILATERAL HIPS, DATE: 02/04/2025 12:56 PM HISTORY: Other - Please see comments. Limitation of activity due to disability COMPARISON: None FINDINGS: Examination of the pelvis and hips fails to demonstrate evidence of fracture, dislocation, or subluxation. Joint spaces are preserved. Sacroiliac joints are aligned and intact. Catheter tip superimposes the bladder. INCIDENTAL FINDINGS: None. IMPRESSION: No distinct hip abnormality identified. DICTATION LOCATION: Location 1 [facility] Owen Laws MD DIAGNOSTIC IMAGING ORDERABLES Final Result * XR LUMBAR SPINE 2 OR 3 VW (02/04/2025 12:55 PM CDT) Anatomical Region Laterality Modality Spine Computed Radiogr aphy 02/04/2025 12:5 6 PM CDT Addenda Addendum by Kevin Villegas MD on 02/04/2025 1:29 PM CDT Addendum: Very mild superior endplate deformity at L4 is unchanged as well. Impressions 02/04/2025 1:14 PM CDT IMPRESSION: Stable severe compression deformity at T12. Stable mild deformity at L1 DICTATION LOCATION: Location 1 - [facility] Narrative 02/04/2025 1:14 PM CDT XR LUMBAR SPINE 2 OR 3 VW DATE: 02/04/2025 12:55 PM HISTORY: Burst fracture of T12 vertebra (CMS/HCC); Closed wedge compression fracture of L4 vertebra, initial encounter (CMS/HCC) FINDINGS: Comparison is 12/25/2024. Mild left convexity of the spine is present. There is a mild wedging appearance of L1, probably unchanged. Severe compression deformity of the T12 vertebral body is unchanged. No significant subluxation is identified. Scattered degenerative osteophytic changes are present. Procedure Note Kevin Villegas MD - 02/04/2025 XR LUMBAR SPINE 2 OR 3 VW DATE: 02/04/2025 12:55 PM HISTORY: Burst fracture of T12 vertebra (CMS/HCC); Closed wedge compression fracture of L4 vertebra, initial encounter (CMS/HCC) FINDINGS: Comparison is 12/25/2024. Mild left convexity of the spine is present. There is a mild wedging appearance of L1, probably unchanged. Severe compression deformity of the T12 vertebral body is unchanged. No significant subluxation is identified. Scattered degenerative osteophytic changes are present. IMPRESSION: Stable severe compression deformity at T12. Stable mild deformity at L1 DICTATION LOCATION: Location [address] [place] [address] Hunter FREED DIAGNOSTIC IMAGING ORDERABLES Edited Result - Final * XR THORACIC SPINE 2 VW (02/04/2025 12:55 PM CDT) Anatomical Region Laterality Modality Spine Computed Radiogr aphy 02/04/2025 12:5 5 PM CDT Impressions 02/04/2025 1:28 PM CDT IMPRESSION: Grossly stable appearance of T12 compression fracture deformity. DICTATION LOCATION: [address] Narrative 02/04/2025 1:28 PM CDT XR THORACIC SPINE 2 VW DATE: 02/04/2025 12:55 PM HISTORY: Burst fracture of T12 vertebra (CMS/HCC); Closed wedge compression fracture of L4 vertebra, initial encounter ([facility]) FINDINGS: Comparison is made to exam on 12/25/2024. Alignment is preserved. Severe compression deformity of T12 is partially obscured due to overlying opacities. Remaining levels are normal. No significant angulation is identified. Procedure Note Kevin Villegas MD - 02/04/2025 XR THORACIC SPINE 2 VW DATE: 02/04/2025 12:55 PM HISTORY: Burst fracture of T12 vertebra (CMS/HCC); Closed wedge compression fracture of L4 vertebra, initial encounter (CMS/HCC) FINDINGS: Comparison is made to exam on 12/25/2024. Alignment is preserved. Severe compression deformity of T12 is partially obscured due to overlying opacities. Remaining levels are normal. No significant angulation is identified. IMPRESSION: Grossly stable appearance of T12 compression fracture deformity. DICTATION LOCATION: Location 1 - [facility] Hunter FREED DIAGNOSTIC IMAGING ORDERABLES Final Result from Last 3 Months Insurance MEDICARE PART A AND B [employer] MEDICARE SUPP AESSI Advance Directives For more information, please contact: [phone] * NO CPR (In Event of Cardiopulmonary Arrest) (Latest Code Status on File) Date Activated Date Inactivated Comments 12/23/2024 8:23 AM 01/01/2025 7:17 PM Question Answer Comments Mechanical Ventilation (for respiratory distress) - Invasive (i.e. intubation): No Mechanical Ventilation (for respiratory distress) - Non-Invasive (i.e. BiPAP, CPAP): No * Default Full Code - Needs Discussion Date Activated Date Inactivated Comments 12/21/2024 1:13 AM 12/23/2024 8:23 AM Care Teams Automotive Starter Repairer Relationship Specialty Start Date End Date Higinio Leary MD [id number] [id number] PCP - General Internal Medicine 02/04/25
--- OUTSIDE RECORDS SUMMARY | 2025-04-26 20:14 | XMS_ITS | Clinical Summary ---
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 Gender Identity Not on file Sexual Orientation Not on file Last Filed Vital Signs Vital Sign Reading Time Taken Comments Blood Pressure 138/88 06/22/2022 12:23 PM GOLF MANAGER Pulse 64 06/22/2022 11:20 AM GOLF MANAGER Temperature 36.4 C (97.6 F) 06/22/2022 11:20 AM GOLF MANAGER Respiratory Rate 16 06/22/2022 11:20 AM GOLF MANAGER Oxygen Saturation 98% 06/22/2022 11:20 AM GOLF MANAGER Inhaled Oxygen Concentration - - Weight 68.5 kg (151 lb) 06/22/2022 11:20 AM GOLF MANAGER Height 182.9 cm (6') 06/22/2022 11:20 AM GOLF MANAGER Body Mass Index 20.48 06/22/2022 11:20 AM GOLF MANAGER Plan of Treatment Health Maintenance Due Date Last Done Comments Colorectal Cancer Screening Colonoscopy (10 Years) 1958 Hepatitis C 1976 Pneumococcal Vaccine: 50+ Years (1 of 2 - PCV) 1977 Zoster Vaccines (1 of 2) 2008 COVID-19 Vaccine (2 - 2024-2 6 season) 2025 08/27/2020 Influenza Adult (#1) 2025 06/22/2022, 03/03/2020, 03/26/2019 DTaP, Tdap and Td Vaccines ( 2 - Td or Tdap) 06/20/2031 06/20/2021 RSV Immunization or 60+ Years (1 - 1-dose 75+ series) 2033 Hepatitis A Vaccines Aged Out No long er eligible based on patient's age to complete this topic Meningococcal B Vaccine Aged Out No l onger eligible based on patient's age to complete this topic Meningococcal Vaccine Aged Out No paulina shad eligible based on patient's age to complete this topic RSV Immunizations Under 20 Months Aged Out No longer eligible b ased on patient's age to complete this topic Insurance Care Teams Hand Scudder Relationship Specialty Start Date End Date Higinio Leary MD PCP - General INTERNAL MEDICINE 07/10/22
--- OUTSIDE RECORDS SUMMARY | 2025-04-26 20:59 | XMS_ITS | Clinical Summary ---
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 Gender Identity Not on file Sexual Orientation Not on file Last Filed Vital Signs Vital Sign Reading Time Taken Comments Blood Pressure 138/88 06/22/2022 12:23 PM MARRIAGE AND FAMILY THERAPIST Pulse 64 06/22/2022 11:20 AM MARRIAGE AND FAMILY THERAPIST Temperature 36.4 C (97.6 F) 06/22/2022 11:20 AM MARRIAGE AND FAMILY THERAPIST Respiratory Rate 16 06/22/2022 11:20 AM MARRIAGE AND FAMILY THERAPIST Oxygen Saturation 98% 06/22/2022 11:20 AM MARRIAGE AND FAMILY THERAPIST Inhaled Oxygen Concentration - - Weight 68.5 kg (151 lb) 06/22/2022 11:20 AM MARRIAGE AND FAMILY THERAPIST Height 182.9 cm (6') 06/22/2022 11:20 AM MARRIAGE AND FAMILY THERAPIST Body Mass Index 20.48 06/22/2022 11:20 AM MARRIAGE AND FAMILY THERAPIST Plan of Treatment Health Maintenance Due Date [...] to complete this topic Insurance Care Teams Remote Encoding Center Manager Relationship Specialty Start Date End Date Higinio Leary MD PCP - General INTERNAL MEDICINE 07/10/22
== END 2025-04-26 21:01 | disposition left against medical advice (07) ==
LOC: ANHED 20:56
DX: Z53.21 Procedure and treatment not carried out due to patient leaving prior to being seen by health care provider (principal)
CPT/HCPCS: 99199